=== PATIENT | female | born 1930 | race Caucasian/White ===

== ENCOUNTER → 2016-04-06 | Outpatient (CLI) | payer MEDICARE, MEDICAID ==
[~2016-04-06] MED LIST: /AMLO25TA PO; ALTA10CA OR; ARTISOL10 OU; ASPI1TAB PO; ASPI81TA45 OR; ATEN50TA2 OR; ATEN50TA2 PO; BACT2OIN2 TOP; CALCTAB22 OR; CALCTAB68 PO; CHLO125TA PO; COLA100C2 OR; CRES20TA PO; ELIQ5TAB PO; FIBE625T PO; OCCUVITE OR; PRIL20CA PO; RECL5INJ2 IV; RISP0.253 PO; VERA120T OR; VITA10002 PO; VITA100072 PO; VITA200016 PO; ZOCO40TA OR
--- NOTE | 2016-04-06 11:33 | REPMRS ---
Patient History The patient states she has not had a clinical breast exam in over a year. Patient is nulliparous. No known family history of cancer. Digital Woman Screen Mammo: April 06, 2016 - Exam #: [id number] Bilateral CC and MLO view(s) were taken. Technologist: Lacey Raymond, Technologist Prior study comparison: February 06, 2015, digital woman screen mammo performed at [facility]. February 06, 2014, digital woman screen mammo performed at [facility]. FINDINGS: There are scattered fibroglandular densities. There is a fairly symmetric fibroglandular pattern in both breasts. There has been no interval development of masses, areas of architectural distortion or clusters of microcalcifications typical of malignancy. Large coarse benign appearing calcifications are present. No significant changes when compared with prior studies. ASSESSMENT: BI-RADS/ACR category 2 mammogram. Benign finding(s). Recommendation Routine screening mammogram of both breasts in 1 year (for women over age 40). This mammogram was interpreted with the aid of an FDA-approved computer-aided dectection system. Electronically Signed By: Gilbert Earl MD 04/06/16 [id number]
--- NOTE | 2016-04-08 09:56 | DEXA ---
AP SPINE L1 - L4 1.107 -0.7 1.4 LT FEMUR TOTAL 0.776 -1.8 0.7 RT FEMUR TOTAL 0.803 -1.6 0.9 TOTAL BODY TOTAL OTHER DUAL FEMUR FRAX* ASSESSMENT Risk factors: None. 10 year probability of fracture Major osteoporotic fracture 14.6 % Hip fracture 4.7 % COMMENTS: Normal bone densitometry of the spine. There is low bone density of the hips. The increased density of the spine does represent a significant change. The increased density of the left hip does represent a significant change. The increased density of the right hip does represent a significant change. The density of the spine has increased 11.7% since the initial exam on 2003. The spine density has increased 2.4% since the most recent exam on 04/15/2014. The density of the left hip has decreased 1.3% since the initial exam on 2003. The density of the left hip has increased 2.6% since the most recent exam on . The density of the right hip has decreased 5.9% since the initial exam on 2003. The density of the right hip has increased 2.9% since the most recent exam on . FOLLOW-UP: Recommendation for the next bone density exam: 2 years. FLORA
== END ==
LOC: M WHC 09:32
PROVIDERS: ATTEND Family Medicine
DX: Z12.31 Encounter for screening mammogram for malignant neoplasm of breast (principal); M81.0 Age-related osteoporosis without current pathological fracture
CPT/HCPCS: 77080; G0202

== ENCOUNTER → 2016-06-28 | Outpatient (REF) | payer MEDICARE, MEDICAID ==
[2016-06-28 12:38] LABS: ALBUMIN 3.1 GM/DL (3.2-5.2); ALBUMIN/GLOBULIN RATIO 1.07 (1.00-1.93); ALKALINE PHOSPHATASE 81 U/L (45-117); ALT/SGPT 19 U/L (12-78); ANION GAP 6 MEQ/L (8-16); AST/SGOT 14 U/L (15-37); BILIRUBIN,TOTAL 0.3 MG/DL (0.2-1.0); BLOOD UREA NITROGEN 18 MG/DL (7-18); CALCIUM LEVEL 8.7 MG/DL (8.8-10.2); CARBON DIOXIDE LEVEL 30 MEQ/L (21-32); CHLORIDE LEVEL 106 MEQ/L (98-107); CHOLESTEROL LEVEL 150 MG/DL (<200); CREATININE FOR GFR 0.92 MG/DL (0.55-1.02); GLOMERULAR FILTRATION RATE > 60.0 (>32); GLUCOSE, FASTING 98 MG/DL (83-110); POTASSIUM SERUM 4.8 MEQ/L (3.5-5.1); SODIUM LEVEL 142 MEQ/L (136-145); TRIGLYCERIDES LEVEL 218 MG/DL (<150)
== END ==
LOC: M SFHCPLAZ 08:46
PROVIDERS: ATTEND Family Medicine
DX: E78.5 Hyperlipidemia, unspecified (principal)

== ENCOUNTER 2016-10-13 07:27 | Outpatient (CLI) | payer MEDICARE, MEDICAID ==
[~2016-10-13] VITALS: Ht 152.4 cm; Wt 61.4 kg
[~2016-10-13 07:27] MED LIST changes: +BACT2OIN10 TOP; -BACT2OIN2 TOP
[2016-10-13] MEDS ORDERED: ZOLEDRONIC ACID 5 MG in APPROPRIATE DILUENT 1 EA IV ONE (07:45)
== END 2016-10-13 08:30 | disposition home or self-care (01) ==
LOC: M INFU 07:27
PROVIDERS: ATTEND Family Medicine
DX: M81.0 Age-related osteoporosis without current pathological fracture (principal); Z78.0 Asymptomatic menopausal state; Z79.82 Long term (current) use of aspirin; Z79.899 Other long term (current) drug therapy
CPT/HCPCS: 96365; J3489

== ENCOUNTER → 2016-10-19 | Outpatient (CLI) | payer MEDICARE, MEDICAID ==
[2016-10-19 18:47] LABS: BASO % 0.3 % (0.0-1.0); EOS # 0.2 K/mm3 (0.0-0.50); EOS % 3.2 % (0.0-3.0); LARGE UNSTAINED CELL # 0.2 K/mm3 (0.0-0.4); LARGE UNSTAINED CELL % 2.8 % (0.0-4.0); LYMPH # 1.8 K/mm3 (1.5-4.5); LYMPH % 22.3 % (24.0-44.0); MEAN CORPUSCULAR HEMOGLOBIN 31.4 pg (27.0-33.0); MEAN CORPUSCULAR HGB CONC 33.5 g/dl (32.0-36.5); MEAN CORPUSCULAR VOLUME 93.6 fl (80.0-96.0); MONO # 0.7 K/mm3 (0.0-0.8); MONO % 9.6 % (0.0-5.0); NEUTROPHILS # 4.5 K/mm3 (1.8-7.7); NEUTROPHILS % 61.8 % (36.0-66.0); PLATELET COUNT, AUTOMATED 236 k/mm3 (150-450); RED CELL DISTRIBUTION WIDTH 12.7 % (11.5-14.5); WHITE BLOOD COUNT 7.2 K/mm3 (4.0-10.0)
[2016-10-19 19:27] LABS: ANION GAP 5 MEQ/L (8-16); BLOOD UREA NITROGEN 27 MG/DL (7-18); CALCIUM LEVEL 9.2 MG/DL (8.8-10.2); CARBON DIOXIDE LEVEL 26 MEQ/L (21-32); CHLORIDE LEVEL 109 MEQ/L (98-107); CREATININE FOR GFR 1.22 MG/DL (0.55-1.02); GLOMERULAR FILTRATION RATE 44.4 (>32); GLUCOSE, FASTING 98 MG/DL (83-110); POTASSIUM SERUM 4.6 MEQ/L (3.5-5.1); SODIUM LEVEL 140 MEQ/L (136-145)
[2016-10-19 20:12] LABS: ERYTHROCYTE SEDIMENTATION RATE 29 mm/hr (0-42)
== END ==
LOC: M LAB 17:26
PROVIDERS: ATTEND Physician Assistant Medical
DX: M79.606 Pain in leg, unspecified (principal); F45.8 Other somatoform disorders; R63.0 Anorexia; Z86.711 Personal history of pulmonary embolism
CPT/HCPCS: 36415; 80048; 85025; 85379; 85652; 86140; G0463

== ENCOUNTER → 2016-12-16 | Outpatient (CLI) | payer MEDICARE, MEDICAID ==
[~2016-12-16] MED LIST changes: +E-Z-GAS II EFFERVESCENT PACKET (SODIUM BICARB./CITRIC ACID/SIMETHICONE) As Ordered ONE; +E-Z-HD 98% w/w 340GM SUSP BTL As Ordered ONE; +E-Z-PAQUE 96% w/w SUSP 176GM BTL As Ordered ONE; +VARIBAR NECTAR 40% w/v 240ML SUSP BTL As Ordered ONE; +VARIBAR PUDDING 40% w/v 230ML TUBE As Ordered ONE
--- NOTE | 2016-12-16 12:59 | REP ---
Modified barium swallow: CINE lateral swallowing fluoroscopy History: Dysphagia. 1 minute and 19 seconds of fluoroscopy time was utilized. Findings: Lateral video fluoroscopy is performed in conjunction with the swallowing therapist. The patient was given varying textures of barium labeled material to swallow. One episode of laryngeal reflux was observed with nectar consistency liquid. No other swallowing dysfunction was observed. Lateral views demonstrate advanced degenerative disc disease with large discogenic spurring in the mid cervical spine. This indents the posterior wall of the hypopharynx and upper cervical esophagus. It is most pronounced at C4-5 and C5-6. Signed by Eb Abernathy MD 12/16/2016 02:48 P
== END ==
LOC: M RAD 08:49
PROVIDERS: ATTEND Family Medicine
DX: J39.8 Other specified diseases of upper respiratory tract (principal); M50.320 Other cervical disc degeneration, mid-cervical region, unspecified level; M25.78 Osteophyte, vertebrae
CPT/HCPCS: 74230; 92611; G8996; G8997; G8998

== ENCOUNTER → 2016-12-20 | Outpatient (CLI) | payer MEDICARE, MEDICAID ==
[~2016-12-20] MED LIST changes: -E-Z-GAS II EFFERVESCENT PACKET (SODIUM BICARB./CITRIC ACID/SIMETHICONE) As Ordered ONE; -E-Z-HD 98% w/w 340GM SUSP BTL As Ordered ONE; -E-Z-PAQUE 96% w/w SUSP 176GM BTL As Ordered ONE; -VARIBAR NECTAR 40% w/v 240ML SUSP BTL As Ordered ONE; -VARIBAR PUDDING 40% w/v 230ML TUBE As Ordered ONE
--- NOTE | 2016-12-20 14:52 | REP ---
PA and lateral chest: Comparison is 2015. The right costophrenic angle is effaced suggestive of a small right pleural effusion. There are no infiltrates. Cardiac size is normal. The polly and mediastinum are unremarkable. There is diffuse demineralization and mild thoracic scoliosis convex left. Impression: Findings are compatible with a small right pleural effusion. Otherwise, essentially negative PA and lateral chest. No Signed by Gilbert Herrmann MD 12/20/2016 02:44 P
== END ==
LOC: M WUC 13:58
PROVIDERS: ATTEND Physician Assistant Medical
DX: R07.81 Pleurodynia (principal)
CPT/HCPCS: 71020; G0463

== ENCOUNTER → 2017-01-20 | Outpatient (REF) | payer MEDICARE, MEDICAID ==
[2017-01-20 11:43] LABS: BASO # 0.1 10^3/uL (0.0-0.2); BASO % 0.6 % (0.0-1.0); EOS # 0.2 10^3/uL (0.0-0.50); EOS % 2.9 % (0.0-3.0); IMMATURE GRANULOCYTE % 0.4 % (0-0); LYMPH # 1.8 10^3/uL (1.5-4.5); MEAN CORPUSCULAR HEMOGLOBIN 30.5 pg (27.0-33.0); MEAN CORPUSCULAR HGB CONC 31.5 g/dl (32.0-36.5); MEAN CORPUSCULAR VOLUME 96.8 fl (80.0-96.0); MONO # 0.9 10^3/uL (0.0-0.8); MONO % 11.5 % (0.0-5.0); NEUTROPHILS # 4.8 10^3/uL (1.8-7.7); NEUTROPHILS % 61.6 % (36.0-66.0); PLATELET COUNT, AUTOMATED 222 10^3/uL (150-450); RED CELL DISTRIBUTION WIDTH 13.2 % (11.5-14.5); WHITE BLOOD COUNT 7.8 10^3/uL (4.0-10.0)
[2017-01-20 12:58] LABS: ALBUMIN 3.2 GM/DL (3.2-5.2); ALBUMIN/GLOBULIN RATIO 0.91 (1.00-1.93); BILIRUBIN,TOTAL 0.5 MG/DL (0.2-1.0); CALCIUM LEVEL 9.2 MG/DL (8.8-10.2); CREATININE FOR GFR 0.97 MG/DL (0.55-1.02); GLOMERULAR FILTRATION RATE 57.8 (>32); PERCENT SATURATION 25.4 % (13.2-45.0); POTASSIUM SERUM 4.9 MEQ/L (3.5-5.1); TOTAL PROTEIN 6.7 GM/DL (6.4-8.2)
== END ==
LOC: M SFHCPLAZ 09:11
PROVIDERS: ATTEND Family Medicine
DX: N18.3 Chronic kidney disease, stage 3 (moderate) (principal)

== ENCOUNTER 2017-02-23 13:17 | Inpatient (IN) | payer MEDICARE, MEDICAID ==
[~2017-02-23] VITALS: Ht 142.2 cm; Wt 60.3 kg
[2017-02-23] MEDS ORDERED: ASPI81TA85 PO (13:29)
[2017-02-23] MEDS ORDERED: OMEP10CASR PO (13:29)
[2017-02-23] MEDS ORDERED: ALTA1CAP3 PO (13:29)
[2017-02-23] MEDS ORDERED: CALCTAB6 PO (13:29)
[2017-02-23] MEDS ORDERED: NS 1,000 ML IV SCH (13:51)
[2017-02-23] MEDS ORDERED: ACETAMINOPHEN TAB 650MG DOSE (2X325MG) PO ONE (14:00)
[2017-02-23 14:21] LABS: BASO % 0.1 % (0.0-1.0); EOS % 0.1 % (0.0-3.0); IMMATURE GRANULOCYTE % 0.4 % (0-0); LYMPH # 1.1 10^3/uL (1.5-4.5); LYMPH % 6.6 % (24.0-44.0); MEAN CORPUSCULAR HEMOGLOBIN 30.8 pg (27.0-33.0); MEAN CORPUSCULAR HGB CONC 32.6 g/dl (32.0-36.5); MEAN CORPUSCULAR VOLUME 94.7 fl (80.0-96.0); MONO # 1.1 10^3/uL (0.0-0.8); MONO % 7.1 % (0.0-5.0); NEUTROPHILS # 13.7 10^3/uL (1.8-7.7); NEUTROPHILS % 85.7 % (36.0-66.0); PLATELET COUNT, AUTOMATED 207 10^3/uL (150-450); RED CELL DISTRIBUTION WIDTH 13.2 % (11.5-14.5)
[2017-02-23 14:37] LABS: ALBUMIN 2.8 GM/DL (3.2-5.2); ALBUMIN/GLOBULIN RATIO 0.68 (1.00-1.93); BILIRUBIN,DIRECT 0.2 MG/DL (0.0-0.2); BILIRUBIN,TOTAL 0.5 MG/DL (0.2-1.0); CALCIUM LEVEL 8.9 MG/DL (8.8-10.2); CREATININE FOR GFR 1.16 MG/DL (0.55-1.02); POTASSIUM SERUM 4.4 MEQ/L (3.5-5.1); TOTAL PROTEIN 6.9 GM/DL (6.4-8.2)
[2017-02-23] MEDS ORDERED: ISOVUE-370 76% 100ML VIAL (Q9967) As Ordered ONE (14:40)
[2017-02-23 14:48] LABS: INR 0.97
--- NOTE | 2017-02-23 15:38 | REP ---
Clinical: Right lower quadrant pain. Technique: Axial contrast enhanced images from the lung bases to the pubic symphysis using 100 ml Isovue 370 intravenous contrast material with coronal and sagittal re-formations. Comparison: 11/13/2015. Findings: Liver, spleen, pancreas, gallbladder, and bilateral adrenal glands are normal. Atrophic left kidney and 3.8 cm right renal cyst remain stable. Moderate fluid-filled appearance to small bowel loops with collapsed loops noted in the lower abdomen/pelvis raising the possibility of early/partial small bowel obstruction. Right lower quadrant including terminal ileum, cecum and appendix are normal. Pelvis demonstrates stable appearance to the bladder with multiple bladder diverticula measuring up to approximately 2.9 cm diameter and age-appropriate uterus/adnexa. No pelvic fluid or ascites. No free air. No significant adenopathy. Atherosclerotic changes to the aorta and vasculature noted without aneurysm. Skeletal structures demonstrate age-related degenerative changes. Lung bases demonstrate bibasilar atelectasis. Impression: 1. Mildly distended loops of small bowel with collapsed loops noted in the lower abdomen/pelvis suggesting the possibility of early/partial small bowel obstruction. Right lower quadrant including cecum, terminal ileum and appendix are normal. 2. Chronic stable changes as described above. 3. Bibasilar atelectasis. Signed by Adam Barth MD 02/23/2017 03:29 P
[2017-02-23] MEDS ORDERED: CEFTRIAXONE SOD 1 GM in APPROPRIATE DILUENT 1 EA IV ONE (16:30)
[2017-02-23] MEDS ORDERED: TYLE650T35 PO (17:00)
[2017-02-23] MEDS ORDERED: CLOB05OI TOP (17:00)
[2017-02-23] MEDS ORDERED: FIBE625T PO (17:00)
[2017-02-23] MEDS ORDERED: FLON1SPR (17:05)
[2017-02-23] MEDS ORDERED: OCUVTAB PO (17:05)
[2017-02-23] MEDS ORDERED: SALI0.6523 (17:05)
[2017-02-23] MEDS ORDERED: OMEP20CA3 PO (17:05)
[2017-02-23] MEDS ORDERED: ACETAMINOPHEN TAB 650MG DOSE (2X325MG) PO PRN (18:00)
--- NOTE | 2017-02-23 18:00 | HPEPDOC ---
General Date of Admission 02/23/2017 Primary Care Physician: Silvestre Myles M.D. Chief Complaint The patient is a 86-year-old female admitted with a reason for visit of Leg Pain. Source: [facility] Caregiver/Aid Exam Limitations: Dementia, Hard of hearing, Mild cognitive slowing, Other ( intellectual disability) Timing/Duration: Day(s) (past day) Severity: Moderate History of Present Illness Ms. Nguyen is 86-year-old female with past medical history significant for intellectual disability, osteoarthritis, dyslipidemia, hypertension, diverticulosis, neurofibromatosis, dementia, diastolic heart failure, history of positive PPD, macular degeneration, CKD, impaired fasting glucose, GERD, factor V Leiden deficiency, chronic kidney disease and history of PE and DVT who is a resident at [facility], patient presents today for increasing left-sided flank pain for the past 1-2 days. The patient is close to her baseline level of cognition according to the [facility] caregiver who is at bedside, the patient has an intellectual disability and cannot answer most questions for herself, her speech is also garbled which again is normal for her. Apparently she has been complaining of increasing left-sided back pain, however she has not complained of any pain with urination blood in her urine or increased frequency, there was a reported temperature today of 100, otherwise no nausea vomiting diarrhea has been reported. The patient usually has a decreased appetite and apparently it is very hard to get her to eat especially at night, she is on a soft diet with 1 cm chunks, nectar thickened. She has not had any recent travel nor any recent contacts with sick individuals. According to the [facility] caregiver the patient no longer takes Eliquis. Her last bowel movement was apparently solid and was 2 days ago. The patient's sister and [facility] apparently share healthcare power of senior trial attorney, the sister's name is Charlotte Carver [phone]. The [facility] caregiver was going to ensure by calling the facility, as he was not certain of her CODE STATUS. The [facility] caregiver did state he thinks she seems a little bit more lethargic than normal but still is close to her baseline. She usually ambulates with a walker, [facility] landcare facilitator also stated that if she does not eat at night that it is not abnormal and she may have a protein drink. Home Medications Scheduled (Flonase Allergy Relief) 50 Mcg/Act Spr, 1 SPRAY NA DAILY, (Reported) Aspirin (Aspir-81) 81 Mg Tab, 81 MG PO QHS, (Reported) Atenolol (Atenolol) 50 Mg Tab, 50 MG PO DAILY, (Reported) Calcium Polycarbophil (Fibercon) 625 Mg Tab, 625 MG PO ASDIRECTED, (Reported) USE ON DAY 3 OF NO BM Calcium/Vitamin D (Calcium 600-D 600-400 mg-Unit) 1 Tab Tab, 1 TAB PO BID, ( Reported) Cyanocobalamin (Vitamin B12) 1,000 Mcg Tab, 1,000 MCG PO DAILY, (Reported) Multivitamins (Ocuvite) 1 Tab Tab, 1 TAB PO DAILY, (Reported) Omeprazole (Omeprazole) 20 Mg Cap, 40 MG PO DAILY, (Reported) Ramipril (Altace) 5 Mg Cap, 5 MG PO BID, (Reported) Risperidone (Risperidone) 0.25 Mg Tab, 0.25 MG PO BID, (Reported) Rosuvastatin Calcium (Crestor) 20 Mg Tab, 20 MG PO QHS, (Reported) Vitamin D (Vitamin D) 2,000 Unit Cap, 2,000 UNIT PO DAILY, (Reported) Scheduled PRN (Saline Nasal [place]) 0.65 % Spr, 2 SPRAYS NA Q2H PRN for CONGESTION, (Reported) Acetaminophen (Tylenol 8 Hour Arthritis) 650 Mg Tab, 1,300 MG PO Q8H PRN for PAIN, (Reported) Clobetasol Propionate (Clobetasol Propionate) 0.05 % Oin, 1 DOSE TOP DAILY PRN for ITCHING, (Reported) APPLY TO FLARED SKIN Mupirocin (Pseudomonas Fluores (Bactroban) 2 % Oin, 1 DOSE TOP TID PRN for OPEN WOUNDS (PATIENT CAUSED), (Reported) Allergies Coded Allergies: No Known Drug Allergy (Verified Allergy, Unknown, 07/02/12) Past Medical History Medical History as per HPI Surgical History Colonoscopy EGD Bilateral cataract Family History Significant Family History: No pertinent family hx Social History * Smoker: Denies Alcohol: Denies Drugs: denies Psychosocial History: Dementia, Other (baseline intellectual disability) Review of Symptoms Constitutional: Reports: Fever, Lethargy, Denies: Chills, Malaise, Night Sweats, Weakness, Fatigue Pulmonary: Denies: Dyspnea, Cough, Pleuritic Chest Pain Cardiovascular: Denies: Chest Pain Gastrointestinal: Denies: Nausea, Vomiting, Abdominal Pain, Diarrhea, Constipation, Melena Genitourinary: Denies: Dysuria, Frequency, Incontinence, Hematuria Musculoskeletal: Reports: Back Pain (left sided back pain) Neurological: Denies: Weakness, Numbness Physical Examination General Exam: Positive: Cooperative, No Acute Distress, Negative: Alert (fatigued, falling asleep on exam) Eye Exam: Positive: Conjunctiva & lids normal, EOMI, Negative: Sclera icteric, Ptosis ENT Exam: Positive: Atraumatic, Nares Patent, Negative: Mucous membr. moist/pink (dry) Neck Exam: Positive: Supple Chest Exam: Positive: Clear to auscultation, Normal air movement, Negative: Rales, Rhonchi, Wheezing, Diminished Heart Exam: Positive: Rate Normal, Normal S1, Normal S2, Negative: Tachycardic, Bradycardic Telemetry: Positive: No significant arrhythmia Abdomen Exam: Positive: Soft, Negative: Normal bowel sounds (hypo throughout), Tenderness, Hepatospenomegaly Extremity Exam: Positive: Edema (+1 b/l LE, this is normal for her as per [facility] caregiver), Swelling, Other (pain with zambrano punch on left flank), Negative: Clubbing, Cyanosis, Tenderness Skin Exam: Positive: Other skin issue (nerurofibromas on face and body) Psych Exam: Negative: Mental status NL (intellectual disability), Oriented x 3 Vital Signs Vital Signs Date Time Temp Pulse Resp B/P (MAP) Pulse Ox O2 Delivery O2 Flow Rate FiO2 02/23/17 16:30 84 182/73 (109) 95 02/23/17 13:17 100.4 18 Room Air Laboratory Data Labs 24H Laboratory Tests 2 02/23/17 14:08: Immature Granulocyte % (Auto) 0.4H, White Blood Count 16.0H, Red Blood Count 4.51, Hemoglobin 13.9, Hematocrit 42.7, Mean Corpuscular Volume 94.7, Mean Corpuscular Hemoglobin 30.8, Mean Corpuscular Hemoglobin Concent 32.6, Red Cell Distribution Width 13.2, Platelet Count 207, Neutrophils (%) (Auto) 85.7H, Lymphocytes (%) (Auto) 6.6L, Monocytes (%) (Auto) 7.1H, Eosinophils (%) (Auto) 0.1, Basophils (%) (Auto) 0.1, Neutrophils # (Auto) 13.7H, Lymphocytes # (Auto) 1.1L, Monocytes # (Auto) 1.1H, Eosinophils # (Auto) 0.0, Basophils # (Auto) 0.0 , Immature Granulocyte # (Auto) 0.1H, Nucleated Red Blood Cells % (auto) 0.0, Prothrombin Time 13.0, Prothromb Time International Ratio 0.97, Anion Gap 8, Glomerular Filtration Rate 47.0, Lactic Acid Level 2.6*H, Calcium Level 8.9, Aspartate Amino Transf (AST/SGOT) 14, Alanine Aminotransferase (ALT/SGPT) 18, Alkaline Phosphatase 77, Total Bilirubin 0.5, Direct Bilirubin 0.2, Total Protein 6.9, Albumin 2.8L, Albumin/Globulin Ratio 0.68L, Lipase 50L 02/23/17 15:51: Urine Appearance CLOUDYH, Urine Color YELLOW, Urine pH 8.0, Urine Specific [place] 1.044, Urine Protein 1+H, Urine Glucose (UA) NEGATIVE, Urine Ketones NEGATIVE, Urine Urobilinogen 2.0H, Urine Bilirubin NEGATIVE, Urine Leukocyte Esterase 2+H, Urine Blood NEGATIVE, Urine Nitrite POSITIVE, Urine WBC (Auto) 64H , Urine RBC (Auto) 3, Urine Hyaline Casts (Auto) 0, Urine Bacteria (Auto) 3+H, Urine Squamous Epithelial Cells 5, Urine Mucus (Auto) SMALL, Urine Sperm (Auto) CBC/BMP Laboratory Tests 02/23/17 14:08 Red Blood Count 4.51, Mean Corpuscular Volume 94.7, Mean Corpuscular Hemoglobin 30.8, Mean Corpuscular Hemoglobin Concent 32.6, Red Cell Distribution Width 13.2 , Neutrophils (%) (Auto) 85.7 H, Lymphocytes (%) (Auto) 6.6 L, Monocytes (%) ( Auto) 7.1 H, Eosinophils (%) (Auto) 0.1, Basophils (%) (Auto) 0.1, Neutrophils # (Auto) 13.7 H, Lymphocytes # (Auto) 1.1 L, Monocytes # (Auto) 1.1 H, Eosinophils # (Auto) 0.0, Basophils # (Auto) 0.0 Microbiology Microbiology 02/23/17 Blood Culture, Received Pending 02/23/17 Blood Culture, Received Pending 02/23/17 Urine Culture, Received Pending Assessment/Plan This is an 86-year-old [facility] female brought to the emergency department for complaint of left-sided flank pain. 1. Left-sided flank pain - Urinalysis done in the ED is suggestive of urinary tract infection -White blood cell count elevated to 16 with lactic acid 2.6 -Patient did receive 1 g of ceftriaxone in ED, will continue 1 g daily and patient, history of past urine culture consistent with Escherichia coli -Patient does not have nausea or vomiting, she is on FiberCon, will continue senna-S and MiraLAX, she does have a history of constipation -CT abdomen and pelvis showed mildly distended loops of small bowel with collapsed loops noted in the lower abdomen/pelvis suggesting the possibility of early/partial small bowel obstruction. Right lower quadrant including cecum, terminal ileum and appendix are normal. Chronic stable changes as described above with bibasilar atelectasis. -Since patient does not have nausea or vomiting at this point time, we'll continue with bowel medications. -Blood and urine culture pending, gentle fluid hydration in light of history of heart failure and advanced age -Pain control with tylenol 2. Hypertension -Stable 165/77 -Continue at home atenolol and Ramipril 3. History of diastolic heart failure -Patient seems euvolemic at the moment -Some trace bilateral lower extremity edema, per [facility] caregiver this is normal -Patient is not short of breath -Last echocardiogram done in 2014 showed left ventricular ejection fraction 75% with pulmonary arterial hypertension or right heart failure -Patient is not on any home diuretic therapy 4. Dyslipidemia -Continue home aspirin and Crestor 5. History of constipation Begin senna S and MiraLAX 6. History of neurotic excoriations -Apparently patient will sometimes itch her skin and cause source, patient may continue her mupirocin ointment for this. 7. GERD Continue omeprazole 8. Intellectual disability Patient is on risperidone, will continue this 9. DVT and PE history -We will begin heparin TID inpatient 10. History of impaired fasting glucose -Glucose 133 in ED -Patient can have sliding scale insulin according to fingers stick glucose 11. Dementia Stable Plan / VTE VTE Prophylaxis Ordered?: Yes GME ATTESTATION GME ATTESTATION My faculty preceptor for this patient encounter was physically present during the encounter and was fully available. All aspects of the patient interview, examination, medical decision making process, and medical care plan development were reviewed and approved by the faculty preceptor. The faculty preceptor is aware and concurs with the plan as stated in the body of this note and will attest to such by his/her cosignature. ATTENDING NOTE I have both independently examined this patient as well as reviewed the H&P. I have discussed in detail with the resident the findings and plan of treatment as documented in the residents note. I will continue to follow the patient and offer further guidance to the patients care as necessary during this hospital stay. BABAR Cagle MD, DO Feb 23, 2017 18:00 CLAUDETTE KWOK MD Feb 24, 2017 11:41
[2017-02-23] MEDS: NS 1,000 ML IV SCH (18:07)
[2017-02-23] MEDS ORDERED: MUPIROCIN 2% OINT 22 GM TUBE TOP PRN (18:15)
[2017-02-23] MEDS ORDERED: SODIUM CHLORIDE NASAL 0.65% SPRAY BTL (OCEAN) PRN (18:15)
[2017-02-23] MEDS ORDERED: CLOBETASOL PROP 0.05% OINT 30 GM TOP PRN (18:15)
[2017-02-23] MEDS: HEPARIN SOD (PORCINE) 5000 UNITS/ML VIAL SC SCH (21:21)
[2017-02-23] MEDS: ROSUVASTATIN 10 MG TAB (CRESTOR) PO SCH (21:21)
[2017-02-23] MEDS: risperiDONE 0.25 MG TAB PO SCH (21:21)
[2017-02-23] MEDS: ASPIRIN 81 MG ENTERIC TAB PO SCH (21:21)
[2017-02-23] MEDS: RAMIPRIL 5 MG CAP PO SCH (21:22)
[2017-02-24] MEDS: HEPARIN SOD (PORCINE) 5000 UNITS/ML VIAL SC SCH ×3 (05:43→20:50)
[2017-02-24 06:00] VITALS: BP 158/60
--- NOTE | 2017-02-24 06:12 | ECGEPIP ---
Stationary ECG Study [facility] - ED Test Date: 2017-02-23 Pat Name: HAI CUTLER Department: Room: - Gender: F Rn Plastic Surgery: GIDEON : 1930 Requested By: Michelle Plaza Order Number: [id number] Reading MD: Puma Hoffman Measurements Intervals [place] Rate: 77 P: 65 CA: 170 QRS: 0 QRSD: 83 T: 3 QT: 353 QTc: 399 Interpretive Statements SINUS RHYTHM WITH OCCASIONAL SUPRAVENTRICULAR PREMATURE COMPLEXES MODERATE VOLTAGE CRITERIA FOR LVH, CONSIDER NORMAL VARIANT NONSPECIFIC T-WAVE ABNORMALITY SIMILAR TO 10/31/15 Electronically Signed On 02-24-2017 6:12:04 EST by Puma Hoffman
[2017-02-24 06:31] LABS: BASO % 0.2 % (0.0-1.0); EOS # 0.1 10^3/uL (0.0-0.50); EOS % 0.6 % (0.0-3.0); IMMATURE GRANULOCYTE % 0.4 % (0-0); LYMPH # 1.3 10^3/uL (1.5-4.5); LYMPH % 12.6 % (24.0-44.0); MEAN CORPUSCULAR HEMOGLOBIN 30.7 pg (27.0-33.0); MEAN CORPUSCULAR HGB CONC 32.8 g/dl (32.0-36.5); MEAN CORPUSCULAR VOLUME 93.4 fl (80.0-96.0); MONO # 1.1 10^3/uL (0.0-0.8); MONO % 10.4 % (0.0-5.0); NEUTROPHILS % 75.8 % (36.0-66.0); PLATELET COUNT, AUTOMATED 203 10^3/uL (150-450); RED CELL DISTRIBUTION WIDTH 13.2 % (11.5-14.5); WHITE BLOOD COUNT 10.5 10^3/uL (4.0-10.0)
[2017-02-24 06:48] LABS: ANION GAP 8 MEQ/L (8-16); BLOOD UREA NITROGEN 17 MG/DL (7-18); CALCIUM LEVEL 8.7 MG/DL (8.8-10.2); CARBON DIOXIDE LEVEL 23 MEQ/L (21-32); CHLORIDE LEVEL 112 MEQ/L (98-107); CREATININE FOR GFR 0.89 MG/DL (0.55-1.02); GLOMERULAR FILTRATION RATE > 60.0 (>32); GLUCOSE, FASTING 103 MG/DL (83-110); POTASSIUM SERUM 3.8 MEQ/L (3.5-5.1); SODIUM LEVEL 143 MEQ/L (136-145)
[2017-02-24] MEDS: MIRALAX *UNIT DOSE* 17GM PACKET PO SCH (09:56)
[2017-02-24] MEDS: FLUTICASONE PROP 0.05% NASAL SPRAY 16 GM (FLONASE) SCH (09:58)
[2017-02-24] MEDS: VITAMIN D 1,000 INTERNATIONAL UNITS TABLET PO SCH (09:58)
[2017-02-24] MEDS: OMEPRAZOLE 20 MG CAP PO SCH (09:58)
[2017-02-24] MEDS: risperiDONE 0.25 MG TAB PO SCH ×2 (09:58→20:01)
[2017-02-24] MEDS: OCUVITE 1 TAB PO SCH (09:58)
[2017-02-24] MEDS: SENOKOT S TAB PO SCH (09:58)
[2017-02-24] MEDS: CYANOCOBALAMIN 500 MCG TAB PO SCH (09:58)
[2017-02-24] MEDS: NS 1,000 ML IV SCH (10:03)
[2017-02-24] MEDS: ATENOLOL 50 MG TAB PO SCH (10:03)
[2017-02-24] MEDS: RAMIPRIL 5 MG CAP PO SCH ×2 (10:03→20:02)
--- NOTE | 2017-02-24 13:42 | IPNPDOC ---
Subjective Date Seen The patient was seen on 02/24/17. Subjective Chief Complaint/HPI The patient is a 86-year-old female admitted with a reason for visit of Pyelonephritis. Events since last encounter I spoke with patient's nurse this morning. Nurse states that patient has been doing fine, not having any fevers, not complaining of any pain. Nurse did not have any concerns today. General: Reports: ROS Unobtainable Objective Physical Examination General Exam: Positive: Cooperative, No Acute Distress Chest Exam: Positive: Clear to auscultation, Normal air movement, Negative: Rales, Rhonchi, Wheezing Heart Exam: Positive: Rate Normal, Regular Rhythm, Normal S1, Normal S2, Negative: Tachycardic, Bradycardic, Gallops, Murmurs, Rubs Abdomen Exam: Positive: Normal bowel sounds, Soft, Negative: Tenderness, Hepatospenomegaly Extremity Exam: Negative: Edema Skin Exam: Positive: Other skin issue (nerurofibromas on face and body) Psych Exam: Positive: Mental status NL (intellectual disability) Assessment /Plan Problems (1) Pyelonephritis Status: Acute Problem Text: 02/24: Improving, white blood cell count down from 16 yesterday to 10.5 today. Ceftriaxone started on 02/23, continue current antibiotic dosing (2) Hypertension Problem Text: 02/24: Stable, continue to monitor (3) Diastolic heart failure Problem Text: 02/24: Last echocardiogram done in 2014 showed left ventricular ejection fraction 75% with pulmonary arterial hypertension or right heart failure (4) Dyslipidemia Problem Text: 02/24: Stable, continue aspirin and Crestor (5) Constipation Problem Text: 02/24: Stable, continue senna and MiraLAX (6) Neurotic excoriations Problem Text: 02/24: Stable, continue mupirocin (7) GERD (gastroesophageal reflux disease) Problem Text: 02/24: Stable, continue omeprazole (8) Intellectual disability Problem Text: 02/24: Continue risperidone Plan/VTE VTE Prophylaxis Ordered?: Yes Plan Patient was seen and examined by myself and her care was reviewed with the resident physician on service VS, I&O, 24H, Fishbone Vital Signs/I&O Vital Signs Date Time Temp Pulse Resp B/P (MAP) Pulse Ox O2 Delivery O2 Flow Rate FiO2 02/24/17 10:03 136/51 02/24/17 10:03 74 02/24/17 06:00 98.1 18 93 Room Air Laboratory Data 24H LABS Laboratory Tests 2 02/23/17 14:08: Immature Granulocyte % (Auto) 0.4H, White Blood Count 16.0H, Red Blood Count 4.51, Hemoglobin 13.9, Hematocrit 42.7, Mean Corpuscular Volume 94.7, Mean Corpuscular Hemoglobin 30.8, Mean Corpuscular Hemoglobin Concent 32.6, Red Cell Distribution Width 13.2, Platelet Count 207, Neutrophils (%) (Auto) 85.7H, Lymphocytes (%) (Auto) 6.6L, Monocytes (%) (Auto) 7.1H, Eosinophils (%) (Auto) 0.1, Basophils (%) (Auto) 0.1, Neutrophils # (Auto) 13.7H, Lymphocytes # (Auto) 1.1L, Monocytes # (Auto) 1.1H, Eosinophils # (Auto) 0.0, Basophils # (Auto) 0.0 , Immature Granulocyte # (Auto) 0.1H, Nucleated Red Blood Cells % (auto) 0.0, Prothrombin Time 13.0, Prothromb Time International Ratio 0.97, Anion Gap 8, Glomerular Filtration Rate 47.0, Lactic Acid Level 2.6*H, Calcium Level 8.9, Aspartate Amino Transf (AST/SGOT) 14, Alanine Aminotransferase (ALT/SGPT) 18, Alkaline Phosphatase 77, Total Bilirubin 0.5, Direct Bilirubin 0.2, Total Protein 6.9, Albumin 2.8L, Albumin/Globulin Ratio 0.68L, Lipase 50L 02/23/17 15:51: Urine Appearance CLOUDYH, Urine Color YELLOW, Urine pH 8.0, Urine Specific [place] 1.044, Urine Protein 1+H, Urine Glucose (UA) NEGATIVE, Urine Ketones NEGATIVE, Urine Urobilinogen 2.0H, Urine Bilirubin NEGATIVE, Urine Leukocyte Esterase 2+H, Urine Blood NEGATIVE, Urine Nitrite POSITIVE, Urine WBC (Auto) 64H , Urine RBC (Auto) 3, Urine Hyaline Casts (Auto) 0, Urine Bacteria (Auto) 3+H, Urine Squamous Epithelial Cells 5, Urine Mucus (Auto) SMALL, Urine Sperm (Auto) 02/23/17 18:27: Lactic Acid Followup at 4 Hours 1.2 02/24/17 06:15: Immature Granulocyte % (Auto) 0.4H, White Blood Count 10.5H, Red Blood Count 4.11, Hemoglobin 12.6, Hematocrit 38.4, Mean Corpuscular Volume 93.4, Mean Corpuscular Hemoglobin 30.7, Mean Corpuscular Hemoglobin Concent 32.8, Red Cell Distribution Width 13.2, Platelet Count 203, Neutrophils (%) (Auto) 75.8H, Lymphocytes (%) (Auto) 12.6L, Monocytes (%) (Auto) 10.4H, Eosinophils (%) (Auto ) 0.6, Basophils (%) (Auto) 0.2, Neutrophils # (Auto) 8.0H, Lymphocytes # (Auto ) 1.3L, Monocytes # (Auto) 1.1H, Eosinophils # (Auto) 0.1, Basophils # (Auto) 0.0, Immature Granulocyte # (Auto) 0.0, Nucleated Red Blood Cells % (auto) 0.0, Anion Gap 8, Glomerular Filtration Rate > 60.0, Calcium Level 8.7L, Blood Urea Nitrogen 17, Creatinine 0.89, Sodium Level 143, Potassium Level 3.8, Chloride Level 112H, Carbon Dioxide Level 23 CBC/BMP Laboratory Tests 02/23/17 14:08 Red Blood Count 4.51, Mean Corpuscular Volume 94.7, Mean Corpuscular Hemoglobin 30.8, Mean Corpuscular Hemoglobin Concent 32.6, Red Cell Distribution Width 13.2 , Neutrophils (%) (Auto) 85.7 H, Lymphocytes (%) (Auto) 6.6 L, Monocytes (%) ( Auto) 7.1 H, Eosinophils (%) (Auto) 0.1, Basophils (%) (Auto) 0.1, Neutrophils # (Auto) 13.7 H, Lymphocytes # (Auto) 1.1 L, Monocytes # (Auto) 1.1 H, Eosinophils # (Auto) 0.0, Basophils # (Auto) 0.0 02/24/17 06:15 Red Blood Count 4.11, Mean Corpuscular Volume 93.4, Mean Corpuscular Hemoglobin 30.7, Mean Corpuscular Hemoglobin Concent 32.8, Red Cell Distribution Width 13.2 , Neutrophils (%) (Auto) 75.8 H, Lymphocytes (%) (Auto) 12.6 L, Monocytes (%) ( Auto) 10.4 H, Eosinophils (%) (Auto) 0.6, Basophils (%) (Auto) 0.2, Neutrophils # (Auto) 8.0 H, Lymphocytes # (Auto) 1.3 L, Monocytes # (Auto) 1.1 H, Eosinophils # (Auto) 0.1, Basophils # (Auto) 0.0, Calcium Level 8.7 L Microbiology Microbiology 02/23/17 Blood Culture, Received Pending 02/23/17 Blood Culture, Received Pending 02/23/17 Urine Culture, Received Pending GME ATTESTATION GME ATTESTATION My faculty preceptor for this patient encounter was physically present during the encounter and was fully available. All aspects of the patient interview, examination, medical decision making process, and medical care plan development were reviewed and approved by the faculty preceptor. The faculty preceptor is aware and concurs with the plan as stated in the body of this note and will attest to such by his/her cosignature. ANDREW ESCOBAR DO Feb 24, 2017 13:42 Blaine White M.D. Feb 24, 2017 16:45
[2017-02-24] MEDS: CEFTRIAXONE SOD 1 GM in APPROPRIATE DILUENT 1 EA IV SCH (16:15)
[2017-02-24] MEDS: ASPIRIN 81 MG ENTERIC TAB PO SCH (20:01)
[2017-02-24] MEDS: ROSUVASTATIN 10 MG TAB (CRESTOR) PO SCH (20:01)
[2017-02-24 20:06] VITALS: BP 137/65
[2017-02-25] MEDS: NS 1,000 ML IV SCH ×2 (01:50→19:05)
[2017-02-25 05:47] LABS: BASO % 0.2 % (0.0-1.0); EOS # 0.1 10^3/uL (0.0-0.50); EOS % 1.3 % (0.0-3.0); IMMATURE GRANULOCYTE % 0.2 % (0-0); LYMPH # 1.3 10^3/uL (1.5-4.5); LYMPH % 14.3 % (24.0-44.0); MEAN CORPUSCULAR HEMOGLOBIN 30.7 pg (27.0-33.0); MEAN CORPUSCULAR HGB CONC 32.5 g/dl (32.0-36.5); MEAN CORPUSCULAR VOLUME 94.6 fl (80.0-96.0); MONO % 10.6 % (0.0-5.0); NEUTROPHILS # 6.8 10^3/uL (1.8-7.7); NEUTROPHILS % 73.4 % (36.0-66.0); PLATELET COUNT, AUTOMATED 212 10^3/uL (150-450); RED CELL DISTRIBUTION WIDTH 13.2 % (11.5-14.5); WHITE BLOOD COUNT 9.3 10^3/uL (4.0-10.0)
[2017-02-25] MEDS: HEPARIN SOD (PORCINE) 5000 UNITS/ML VIAL SC SCH ×3 (05:55→20:19)
[2017-02-25 06:00] VITALS: BP 141/64
[2017-02-25 06:06] LABS: ANION GAP 9 MEQ/L (8-16); BLOOD UREA NITROGEN 14 MG/DL (7-18); CALCIUM LEVEL 7.7 MG/DL (8.8-10.2); CARBON DIOXIDE LEVEL 21 MEQ/L (21-32); CHLORIDE LEVEL 115 MEQ/L (98-107); CREATININE FOR GFR 0.83 MG/DL (0.55-1.02); GLOMERULAR FILTRATION RATE > 60.0 (>32); GLUCOSE, FASTING 102 MG/DL (83-110); POTASSIUM SERUM 3.8 MEQ/L (3.5-5.1); SODIUM LEVEL 145 MEQ/L (136-145)
[2017-02-25] MEDS: OCUVITE 1 TAB PO SCH (08:18)
[2017-02-25] MEDS: risperiDONE 0.25 MG TAB PO SCH ×2 (08:18→20:19)
[2017-02-25] MEDS: CYANOCOBALAMIN 500 MCG TAB PO SCH (08:18)
[2017-02-25] MEDS: RAMIPRIL 5 MG CAP PO SCH ×2 (08:18→20:19)
[2017-02-25] MEDS: SENOKOT S TAB PO SCH (08:19)
[2017-02-25] MEDS: VITAMIN D 1,000 INTERNATIONAL UNITS TABLET PO SCH (08:19)
[2017-02-25] MEDS: OMEPRAZOLE 20 MG CAP PO SCH (08:19)
[2017-02-25] MEDS: MIRALAX *UNIT DOSE* 17GM PACKET PO SCH (08:19)
[2017-02-25] MEDS: FLUTICASONE PROP 0.05% NASAL SPRAY 16 GM (FLONASE) SCH (08:20)
[2017-02-25] MEDS: ATENOLOL 50 MG TAB PO SCH (08:20)
--- NOTE | 2017-02-25 13:39 | IPNPDOC ---
Subjective Date Seen The patient was seen on 02/25/17. Subjective Chief Complaint/HPI The patient is a 86-year-old female admitted with a reason for visit of Pyelonephritis. Constitutional: Denies: Chills, Fever Eyes: Denies: Pain, Vision change ENT: Denies: Head Aches Skin: Denies: Rash Pulmonary: Denies: Dyspnea, Cough Cardiovascular: Denies: Chest Pain Objective Physical Examination General Exam: Positive: Cooperative, No Acute Distress Chest Exam: Positive: Clear to auscultation, Normal air movement, Negative: Rales, Rhonchi, Wheezing Heart Exam: Positive: Rate Normal, Regular Rhythm, Normal S1, Normal S2, Negative: Tachycardic, Bradycardic, Gallops, Murmurs, Rubs Abdomen Exam: Positive: Normal bowel sounds, Soft, Negative: Tenderness, Hepatospenomegaly Extremity Exam: Negative: Edema Skin Exam: Positive: 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 coli >100K 02/23 BCX x 2 NG 02/23 CT AP: 1. Mildly distended loops of small bowel with collapsed loops noted in the lower abdomen/pelvis suggesting the possibility of early/partial small bowel obstruction. Right lower quadrant including cecum, terminal ileum and appendix are normal. 2. Chronic stable changes as described above. 3. Bibasilar atelectasis. (2) Incontinent of urine Status: Chronic Problem Text: chronic, near complete incontinence check bladder US to r/o retention (3) Physical deconditioning Status: Acute Response to Treatment: Stable Problem Text: [facility] resident 02/25 consult PT (4) Hypertension Problem Text: Stable on HD atenolol/ramipril (5) Diastolic heart failure Problem Text: Euvolemic on current regimen 02/24: Last echocardiogram done in 2014 showed left ventricular ejection fraction 75% with pulmonary arterial hypertension or right heart failure (6) Constipation Problem Text: 02/24: Stable, continue senna and MiraLAX (7) Neurotic excoriations Problem Text: 02/24: Stable, continue mupirocin (8) GERD (gastroesophageal reflux disease) Problem Text: 02/24: Stable, continue omeprazole (9) Intellectual disability Problem Text: 02/24: Continue risperidone Plan/VTE VTE Prophylaxis Ordered?: Yes VS, I&O, 24H, Fishbone Vital Signs/I&O Vital Signs Date Time Temp Pulse Resp B/P (MAP) Pulse Ox O2 Delivery O2 Flow Rate FiO2 02/25/17 08:20 72 150/62 02/25/17 06:00 98.6 18 93 Room Air Laboratory Data 24H LABS Laboratory Tests 2 02/25/17 05:09: Immature Granulocyte % (Auto) 0.2H, White Blood Count 9.3, Red Blood Count 3.87L , Hemoglobin 11.9L, Hematocrit 36.6, Mean Corpuscular Volume 94.6, Mean Corpuscular Hemoglobin 30.7, Mean Corpuscular Hemoglobin Concent 32.5, Red Cell Distribution Width 13.2, Platelet Count 212, Neutrophils (%) (Auto) 73.4H, Lymphocytes (%) (Auto) 14.3L, Monocytes (%) (Auto) 10.6H, Eosinophils (%) (Auto ) 1.3, Basophils (%) (Auto) 0.2, Neutrophils # (Auto) 6.8, Lymphocytes # (Auto) 1.3L, Monocytes # (Auto) 1.0H, Eosinophils # (Auto) 0.1, Basophils # (Auto) 0.0 , Immature Granulocyte # (Auto) 0.0, Nucleated Red Blood Cells % (auto) 0.0, Anion Gap 9, Glomerular Filtration Rate > 60.0, Blood Urea Nitrogen 14, Creatinine 0.83, Sodium Level 145, Potassium Level 3.8, Chloride Level 115H, Carbon Dioxide Level 21, Calcium Level 7.7L CBC/BMP Laboratory Tests 02/25/17 05:09 Red Blood Count 3.87 L, Mean Corpuscular Volume 94.6, Mean Corpuscular Hemoglobin 30.7, Mean Corpuscular Hemoglobin Concent 32.5, Red Cell Distribution Width 13.2, Neutrophils (%) (Auto) 73.4 H, Lymphocytes (%) (Auto) 14.3 L, Monocytes (%) (Auto) 10.6 H, Eosinophils (%) (Auto) 1.3, Basophils (%) ( Auto) 0.2, Neutrophils # (Auto) 6.8, Lymphocytes # (Auto) 1.3 L, Monocytes # ( Auto) 1.0 H, Eosinophils # (Auto) 0.1, Basophils # (Auto) 0.0, Calcium Level 7.7 L Microbiology Microbiology 02/23/17 Blood Culture - Preliminary, Resulted No growth after 24 hours . All specim... 02/23/17 Blood Culture - Preliminary, Resulted No growth after 24 hours . All specim... 02/23/17 Urine Culture - Final, Complete Escherichia Coli Silvestre Myles M.D. Feb 25, 2017 13:39
[2017-02-25 14:00] VITALS: BP 151/84
[2017-02-25] MEDS: CEFTRIAXONE SOD 1 GM in APPROPRIATE DILUENT 1 EA IV SCH (19:05)
[2017-02-25] MEDS: ROSUVASTATIN 10 MG TAB (CRESTOR) PO SCH (20:18)
[2017-02-25] MEDS: ASPIRIN 81 MG ENTERIC TAB PO SCH (20:19)
[2017-02-25 20:22] VITALS: BP 155/63
[2017-02-26] MEDS: HEPARIN SOD (PORCINE) 5000 UNITS/ML VIAL SC SCH ×3 (05:11→22:00)
[2017-02-26 06:00] VITALS: BP 165/72
[2017-02-26 06:47] LABS: BASO % 0.2 % (0.0-1.0); EOS # 0.2 10^3/uL (0.0-0.50); IMMATURE GRANULOCYTE % 0.5 % (0-0); LYMPH % 12.8 % (24.0-44.0); MEAN CORPUSCULAR HEMOGLOBIN 30.5 pg (27.0-33.0); MEAN CORPUSCULAR VOLUME 92.6 fl (80.0-96.0); MONO # 0.8 10^3/uL (0.0-0.8); MONO % 9.7 % (0.0-5.0); NEUTROPHILS % 74.8 % (36.0-66.0); PLATELET COUNT, AUTOMATED 233 10^3/uL (150-450); RED CELL DISTRIBUTION WIDTH 12.7 % (11.5-14.5); WHITE BLOOD COUNT 8.1 10^3/uL (4.0-10.0)
[2017-02-26 07:08] LABS: ANION GAP 9 MEQ/L (8-16); BLOOD UREA NITROGEN 10 MG/DL (7-18); CALCIUM LEVEL 8.1 MG/DL (8.8-10.2); CARBON DIOXIDE LEVEL 22 MEQ/L (21-32); CHLORIDE LEVEL 113 MEQ/L (98-107); CREATININE FOR GFR 0.69 MG/DL (0.55-1.02); GLOMERULAR FILTRATION RATE > 60.0 (>32); GLUCOSE, FASTING 92 MG/DL (83-110); POTASSIUM SERUM 3.3 MEQ/L (3.5-5.1); SODIUM LEVEL 144 MEQ/L (136-145)
[2017-02-26] MEDS: OMEPRAZOLE 20 MG CAP PO SCH (08:50)
[2017-02-26] MEDS: OCUVITE 1 TAB PO SCH (08:50)
[2017-02-26] MEDS: SENOKOT S TAB PO SCH (08:50)
[2017-02-26] MEDS: RAMIPRIL 5 MG CAP PO SCH ×2 (08:53→21:00)
[2017-02-26] MEDS: CYANOCOBALAMIN 500 MCG TAB PO SCH (08:54)
[2017-02-26] MEDS: risperiDONE 0.25 MG TAB PO SCH ×2 (08:54→21:00)
[2017-02-26] MEDS: FLUTICASONE PROP 0.05% NASAL SPRAY 16 GM (FLONASE) SCH (08:54)
[2017-02-26] MEDS: ATENOLOL 50 MG TAB PO SCH (08:54)
[2017-02-26] MEDS: VITAMIN D 1,000 INTERNATIONAL UNITS TABLET PO SCH (08:54)
--- NOTE | 2017-02-26 08:54 | IPNPDOC ---
Subjective Date Seen The patient was seen on 02/26/17. Subjective Chief Complaint/HPI The patient is a 86-year-old female admitted with a reason for visit of Pyelonephritis. Events since last encounter According to nursing staff, last night patient was extremely agitated and ripped out her IV. Constitutional: Denies: Chills, Fever ENT: Denies: Head Aches Pulmonary: Denies: Dyspnea, Cough Cardiovascular: Denies: Chest Pain, Palpitations Gastrointestinal: Denies: Nausea, Vomiting, Abdominal Pain, Diarrhea, Constipation Musculoskeletal: Denies: Back Pain Objective Physical Examination General Exam: Positive: Cooperative (Patient is minimally responsive to questioning, but cooperative with physical exam), No Acute Distress Chest Exam: Positive: Clear to auscultation, Normal air movement, Negative: Rales, Rhonchi, Wheezing Heart Exam: Positive: Rate Normal, Regular Rhythm, Normal S1, Normal S2, Negative: Tachycardic, Bradycardic, Gallops, Murmurs, Rubs Abdomen Exam: Positive: Normal bowel sounds, Soft, Other (No tenderness to palpation of CVA bilaterally), Negative: Tenderness, Hepatospenomegaly Extremity Exam: Positive: Tenderness (Patient has some minimal swelling of her lower extremities without pitting edema, she responds "Don't do that!" when I touched her legs), Swelling Skin Exam: Positive: 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 Urine Culture came back positive to E. coli with sensitivity to Bactrim. I have D/David her IV ABX in favor of oral Bactrim DS 160/800 BID. WBC 8.1 today. Bladder US done but not read yet. 02/25 Tm 02/24 99.5 200, WBC 9.3 (02/23 16.3) 02/23 UCX E. coli >100K 02/23 BCX x 2 NG 02/23 CT AP: 1. Mildly distended loops of small bowel with collapsed loops noted in the lower abdomen/pelvis suggesting the possibility of early/partial small bowel obstruction. Right lower quadrant including cecum, terminal ileum and appendix are normal. 2. Chronic stable changes as described above. 3. Bibasilar atelectasis. (2) Incontinent of urine Status: Chronic Problem Text: 02/26: Bladder U/S done, not read yet chronic, near complete incontinence check bladder US to r/o retention (3) Physical deconditioning Status: Acute Response to Treatment: Stable Problem Text: [facility] resident 02/26 Pt unable to assess BUT [facility] rep states patient is at baseline mobility 02/25 consulted PT (4) Hypertension Problem Text: Continue HD ramipril/atenolol changed to carvedilol for better control (5) Diastolic heart failure Problem Text: Euvolemic on current regimen 02/24: Last echocardiogram done in 2014 showed left ventricular ejection fraction 75% with pulmonary arterial hypertension or right heart failure (6) Constipation Problem Text: 02/24: Stable, continue senna and MiraLAX (7) Neurotic excoriations Problem Text: 02/24: Stable, continue mupirocin (8) GERD (gastroesophageal reflux disease) Problem Text: 02/24: Stable, continue omeprazole (9) Intellectual disability Problem Text: 02/24: Continue risperidone Plan/VTE VTE Prophylaxis Ordered?: Yes VS, I&O, 24H, Fishbone Vital Signs/I&O Vital Signs Date Time Temp Pulse Resp B/P (MAP) Pulse Ox O2 Delivery O2 Flow Rate FiO2 02/26/17 06:00 98.2 81 18 165/72 (103) 96 Room Air Laboratory Data 24H LABS Laboratory Tests 2 02/26/17 06:28: Anion Gap 9, Glomerular Filtration Rate > 60.0, Blood Urea Nitrogen 10, Creatinine 0.69, Sodium Level 144, Potassium Level 3.3L, Chloride Level 113H, Carbon Dioxide Level 22, Calcium Level 8.1L 02/26/17 06:29: Immature Granulocyte % (Auto) 0.5H, White Blood Count 8.1, Red Blood Count 3.93L , Hemoglobin 12.0, Hematocrit 36.4, Mean Corpuscular Volume 92.6, Mean Corpuscular Hemoglobin 30.5, Mean Corpuscular Hemoglobin Concent 33.0, Red Cell Distribution Width 12.7, Platelet Count 233, Neutrophils (%) (Auto) 74.8H, Lymphocytes (%) (Auto) 12.8L, Monocytes (%) (Auto) 9.7H, Eosinophils (%) (Auto) 2.0, Basophils (%) (Auto) 0.2, Neutrophils # (Auto) 6.0, Lymphocytes # (Auto) 1.0L, Monocytes # (Auto) 0.8, Eosinophils # (Auto) 0.2, Basophils # (Auto) 0.0, Immature Granulocyte # (Auto) 0.0, Nucleated Red Blood Cells % (auto) 0.0 CBC/BMP Laboratory Tests 02/26/17 06:28 Calcium Level 8.1 L 02/26/17 06:29 Red Blood Count 3.93 L, Mean Corpuscular Volume 92.6, Mean Corpuscular Hemoglobin 30.5, Mean Corpuscular Hemoglobin Concent 33.0, Red Cell Distribution Width 12.7, Neutrophils (%) (Auto) 74.8 H, Lymphocytes (%) (Auto) 12.8 L, Monocytes (%) (Auto) 9.7 H, Eosinophils (%) (Auto) 2.0, Basophils (%) ( Auto) 0.2, Neutrophils # (Auto) 6.0, Lymphocytes # (Auto) 1.0 L, Monocytes # ( Auto) 0.8, Eosinophils # (Auto) 0.2, Basophils # (Auto) 0.0 Microbiology Microbiology 02/23/17 Blood Culture - Preliminary, Resulted No Growth after 48 hours. All Specime... 02/23/17 Blood Culture - Preliminary, Resulted No Growth after 48 hours. All Specime... 02/23/17 Urine Culture - Final, Complete Escherichia Coli GME ATTESTATION GME ATTESTATION My faculty preceptor for this patient encounter was physically present during the encounter and was fully available. All aspects of the patient interview, examination, medical decision making process, and medical care plan development were reviewed and approved by the faculty preceptor. The faculty preceptor is aware and concurs with the plan as stated in the body of this note and will attest to such by his/her cosignature. CRITSIAN WALTERS DO Feb 26, 2017 08:54 Silvestre Myles M.D. Feb 26, 2017 18:23
[2017-02-26] MEDS: MIRALAX *UNIT DOSE* 17GM PACKET PO SCH (08:55)
[2017-02-26] MEDS: BACTRIM 160MG/800MG DS TAB PO SCH ×2 (09:42→21:00)
--- NOTE | 2017-02-26 10:04 | REP ---
Clinical: Recurrent urinary tract infection. Technique: Real time mejía scale ultrasound examination using curved array transducer. Findings: Due to the patient's limitations, bladder was not fully distended nor was the patient able to void for a postvoid evaluation. Bladder currently measured 4.2 x 5.9 x 4.2 cm (70 ml) and demonstrated a right ureteral jet. A left ureteral jet was not identified during examination. A small right anterior bladder diverticulum cannot be excluded and remains relatively similar to prior examination dated 01/25/2010. No significant bladder wall thickening or mass lesion is identified. Impression: Significantly limited examination. 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 No obvious acute abnormality otherwise noted. Signed by Adam Barth MD 02/26/2017 09:56 A
[2017-02-26 14:00] VITALS: BP 150/69
[2017-02-26] MEDS ORDERED: NITROFURANTOIN (MACROBID) 100 MG CAP PO SCH (16:00)
[2017-02-26] MEDS: CARVedilol 12.5 MG TAB PO SCH (21:00)
[2017-02-26] MEDS: ASPIRIN 81 MG ENTERIC TAB PO SCH (21:00)
[2017-02-26] MEDS: ROSUVASTATIN 10 MG TAB (CRESTOR) PO SCH (21:00)
[2017-02-26 22:00] VITALS: BP 161/83
[2017-02-27] MEDS: HEPARIN SOD (PORCINE) 5000 UNITS/ML VIAL SC SCH (05:57)
[2017-02-27 06:00] VITALS: BP 156/79
[2017-02-27 07:09] LABS: BASO % 0.3 % (0.0-1.0); EOS # 0.3 10^3/uL (0.0-0.50); EOS % 4.3 % (0.0-3.0); IMMATURE GRANULOCYTE % 0.3 % (0-0); LYMPH % 16.1 % (24.0-44.0); MEAN CORPUSCULAR HEMOGLOBIN 30.2 pg (27.0-33.0); MEAN CORPUSCULAR HGB CONC 32.6 g/dl (32.0-36.5); MEAN CORPUSCULAR VOLUME 92.8 fl (80.0-96.0); MONO # 0.7 10^3/uL (0.0-0.8); MONO % 11.3 % (0.0-5.0); NEUTROPHILS # 4.2 10^3/uL (1.8-7.7); NEUTROPHILS % 67.7 % (36.0-66.0); PLATELET COUNT, AUTOMATED 261 10^3/uL (150-450); WHITE BLOOD COUNT 6.2 10^3/uL (4.0-10.0)
[2017-02-27 07:24] LABS: ANION GAP 10 MEQ/L (8-16); BLOOD UREA NITROGEN 8 MG/DL (7-18); CALCIUM LEVEL 8.2 MG/DL (8.8-10.2); CARBON DIOXIDE LEVEL 22 MEQ/L (21-32); CHLORIDE LEVEL 113 MEQ/L (98-107); CREATININE FOR GFR 0.77 MG/DL (0.55-1.02); GLOMERULAR FILTRATION RATE > 60.0 (>32); GLUCOSE, FASTING 83 MG/DL (83-110); POTASSIUM SERUM 3.5 MEQ/L (3.5-5.1); SODIUM LEVEL 145 MEQ/L (136-145)
[2017-02-27 08:00] VITALS: BP 159/68
[2017-02-27] MEDS: MIRALAX *UNIT DOSE* 17GM PACKET PO SCH (09:00)
[2017-02-27] MEDS ORDERED: CEFD1CAP8 PO (09:03)
[2017-02-27] MEDS ORDERED: CARV12.5 PO (09:03)
--- NOTE | 2017-02-27 10:09 | DSES ---
DATE OF ADMISSION: 02/23/2017 DATE OF DISCHARGE: PRIMARY CARE PROVIDER: Dr. Silvestre Myles ATTENDING TODAY: Dr. Binh Roberson HISTORY: This is an 86-year-old female patient of Dr. Myles's who presented to [facility] emergency room. She is a resident of [facility] ([facility]) with dementia, mental retardation, who had been complaining of left sided flank pain for a day or two prior to her presentation. Her cognition had been at baseline, according to [facility] caregiver. They also noted a temperature of 100 on the day of presentation, as well as decreased appetite. During her hospitalization, she has remained medically stable. She was admitted to the hospital for pyelonephritis with leukocytosis. She was started on ceftriaxone. Her culture returned Escherichia (E) coli with resistance to ampicillin, as well as indeterminate significance to cefazolin. She did respond favorably to ceftriaxone. She was transitioned to Bactrim, although I had concerns about discharging an 86-year-old patient on oral Bactrim and therefore I will change her to Omnicef, which is the same class cephalosporin of ceftriaxone, which she had already responded favorably to with improvement in her leukocytosis and her physical condition. She will be returning back to [facility] today where I think will continue to see improvement in her overall abilities in comparison with the hospital where she has refused care. Bladder ultrasound without any acute findings, although it was difficult to fully assess due to her bladder not being full. The patient's creatinine clearance was calculated at the day of discharge to be 36.97, therefore her appropriate cefdinir dose is 300 mg by mouth twice a day. DISCHARGE DIAGNOSES: 1. Acute pyelonephritis. 2. Urinary incontinence. 3. Hypertension. 4. Mental retardation. DISCHARGE MEDICATIONS: Include: - Omnicef 300 mg by mouth twice a day for 7 days - carvedilol 12.5 mg by mouth twice a day - aspirin 81 mg daily - FiberCon daily - calcium with vitamin D one tablet twice a day - clobetasol topically as needed for itching - B12 1000 mcg daily - Flonase 50 mcg per actuation daily - multivitamin one tablet daily - mupirocin to wounds as needed - omeprazole 40 mg daily - Ramipril 5 mg twice a day - Risperdal 0.25 mg twice a day - Crestor 20 mg before bed - vitamin D 2000 units daily Discharge plan will be to followup with Dr. Myles in 1 week. Her activity should be as tolerated. Her diet should be soft with no pieces of food greater than 1 cm. She should have nectar thickened liquids.
[2017-02-27] MEDS: VITAMIN D 1,000 INTERNATIONAL UNITS TABLET PO SCH (10:36)
[2017-02-27] MEDS: risperiDONE 0.25 MG TAB PO SCH (10:36)
[2017-02-27 10:37] VITALS: BP 159/68
[2017-02-27] MEDS: CARVedilol 12.5 MG TAB PO SCH (10:37)
[2017-02-27] MEDS: SENOKOT S TAB PO SCH (10:37)
[2017-02-27] MEDS: OCUVITE 1 TAB PO SCH (10:37)
[2017-02-27] MEDS: RAMIPRIL 5 MG CAP PO SCH (10:37)
[2017-02-27] MEDS: BACTRIM 160MG/800MG DS TAB PO SCH (10:38)
[2017-02-27] MEDS: CYANOCOBALAMIN 500 MCG TAB PO SCH (10:38)
[2017-02-27] MEDS: OMEPRAZOLE 20 MG CAP PO SCH (10:38)
[2017-02-27] MEDS: FLUTICASONE PROP 0.05% NASAL SPRAY 16 GM (FLONASE) SCH (10:39)
== END 2017-02-27 10:55 | disposition home or self-care (01) | DRG 690 ==
LOC: M ED 13:17 → M ED INP 18:02 → M MS5PR 19:15
PROVIDERS: ADMIT Hospitalist; ATTEND Family Medicine
DX: N10 Acute pyelonephritis (principal); I50.32 Chronic diastolic (congestive) heart failure; D68.2 Hereditary deficiency of other clotting factors; I13.0 Hypertensive heart and chronic kidney disease with heart failure and stage 1 through stage 4 chronic kidney disease, or unspecified chronic kidney disease; F79 Unspecified intellectual disabilities; F03.90 Unspecified dementia, unspecified severity, without behavioral disturbance, psychotic disturbance, mood disturbance, and anxiety; R32 Unspecified urinary incontinence; B96.29 Other Escherichia coli [E. coli] as the cause of diseases classified elsewhere; Z79.82 Long term (current) use of aspirin; Z79.899 Other long term (current) drug therapy; M19.90 Unspecified osteoarthritis, unspecified site; H35.30 Unspecified macular degeneration; K21.9 Gastro-esophageal reflux disease without esophagitis; Z86.711 Personal history of pulmonary embolism; Z86.718 Personal history of other venous thrombosis and embolism; E78.5 Hyperlipidemia, unspecified; R73.01 Impaired fasting glucose; K59.00 Constipation, unspecified; D33.3 Benign neoplasm of cranial nerves

== ENCOUNTER → 2017-03-02 | Outpatient (REF) | payer MEDICARE, MEDICAID ==
[~2017-03-02] MED LIST changes: +ALTA1CAP3 PO; +ASPI81TA85 PO; +CALCTAB6 PO; +CARV12.5 PO; +CEFD1CAP8 PO; +CLOB05OI TOP; +FLON1SPR; +OCUVTAB PO; +OMEP10CASR PO; +OMEP20CA3 PO; +SALI0.6523; +TYLE650T35 PO
== END ==
LOC: M SFHCPLAZ 17:34
PROVIDERS: ATTEND Family Medicine
DX: R19.7 Diarrhea, unspecified (principal)

== ENCOUNTER → 2017-03-03 | Outpatient (REF) | payer MEDICARE, MEDICAID ==
[~2017-03-03] MED LIST changes: +AMLO5TAB2 PO; +CALC600T31 PO
[2017-03-03 13:55] LABS: BASO % 0.3 % (0.0-1.0); EOS # 0.3 10^3/uL (0.0-0.50); EOS % 3.3 % (0.0-3.0); IMMATURE GRANULOCYTE % 0.4 % (0-0); LYMPH # 1.3 10^3/uL (1.5-4.5); LYMPH % 16.7 % (24.0-44.0); MEAN CORPUSCULAR HEMOGLOBIN 30.3 pg (27.0-33.0); MEAN CORPUSCULAR HGB CONC 32.1 g/dl (32.0-36.5); MEAN CORPUSCULAR VOLUME 94.3 fl (80.0-96.0); MONO # 0.8 10^3/uL (0.0-0.8); MONO % 10.2 % (0.0-5.0); NEUTROPHILS # 5.2 10^3/uL (1.8-7.7); NEUTROPHILS % 69.1 % (36.0-66.0); PLATELET COUNT, AUTOMATED 410 10^3/uL (150-450); RED CELL DISTRIBUTION WIDTH 13.2 % (11.5-14.5); WHITE BLOOD COUNT 7.5 10^3/uL (4.0-10.0)
[2017-03-03 14:31] LABS: ALBUMIN 2.7 GM/DL (3.2-5.2); ALBUMIN/GLOBULIN RATIO 0.79 (1.00-1.93); ALKALINE PHOSPHATASE 107 U/L (45-117); ALT/SGPT 28 U/L (12-78); ANION GAP 6 MEQ/L (8-16); AST/SGOT 22 U/L (7-37); BILIRUBIN,TOTAL 0.2 MG/DL (0.2-1.0); BLOOD UREA NITROGEN 12 MG/DL (7-18); CALCIUM LEVEL 8.7 MG/DL (8.8-10.2); CARBON DIOXIDE LEVEL 28 MEQ/L (21-32); CHLORIDE LEVEL 109 MEQ/L (98-107); CHOLESTEROL LEVEL 126 MG/DL (<200); CREATININE FOR GFR 0.63 MG/DL (0.55-1.02); GLOMERULAR FILTRATION RATE > 60.0 (>32); GLUCOSE, FASTING 89 MG/DL (83-110); POTASSIUM SERUM 4.7 MEQ/L (3.5-5.1); SODIUM LEVEL 143 MEQ/L (136-145); TOTAL PROTEIN 6.1 GM/DL (6.4-8.2); TRIGLYCERIDES LEVEL 202 MG/DL (<150)
== END ==
LOC: M SFHCPLAZ 13:00
PROVIDERS: ATTEND Family Medicine
DX: R19.7 Diarrhea, unspecified (principal); E78.5 Hyperlipidemia, unspecified
CPT/HCPCS: 36415; 80053; 80061; 83605; 85025; G0463

== ENCOUNTER → 2017-03-05 | Outpatient (CLI) | payer MEDICARE, MEDICAID ==
[~2017-03-05] MED LIST changes: -AMLO5TAB2 PO; -CALC600T31 PO
--- NOTE | 2017-03-05 22:16 | REP ---
Clinical: Pain and swelling. Technique: AP view of the pelvis with neutral and frog lateral views of the right and left hip. Findings: Advanced, symmetric bilateral degenerative changes appreciated. Findings include increased sclerosis to the acetabular roof with marginal spurring and joint space narrowing as well as diffuse enthesopathy and cortical irregularities. No acute fracture dislocation. Impression: Advanced symmetric degenerative changes. Signed by Adam Barth MD 03/05/2017 10:08 P
--- NOTE | 2017-03-05 22:17 | REP ---
Clinical: Pain and swelling. Technique: AP, lateral, bilateral oblique and sunrise views of the right and left knee. Findings: Early advanced tricompartmental osteoarthritic degenerative changes are appreciated bilaterally. No acute fracture dislocation. No effusion. Impression: Early advanced tricompartmental osteoarthritic degenerative changes. Signed by Adam Barth MD 03/05/2017 10:09 P
== END ==
LOC: M RAD 18:45
PROVIDERS: ATTEND Family Medicine
DX: M16.11 Unilateral primary osteoarthritis, right hip (principal); M17.0 Bilateral primary osteoarthritis of knee

== ENCOUNTER 2017-03-24 07:56 | Inpatient (IN) | payer MEDICARE, MEDICAID ==
[2017-03-24 08:42] LABS: BASO % 0.2 % (0.0-1.0); EOS # 0.3 10^3/uL (0.0-0.50); EOS % 2.4 % (0.0-3.0); IMMATURE GRANULOCYTE % 0.3 % (0-0); LYMPH # 1.4 10^3/uL (1.5-4.5); LYMPH % 13.5 % (24.0-44.0); MEAN CORPUSCULAR HGB CONC 32.3 g/dl (32.0-36.5); NEUTROPHILS # 7.5 10^3/uL (1.8-7.7); NEUTROPHILS % 73.6 % (36.0-66.0); PLATELET COUNT, AUTOMATED 127 10^3/uL (150-450); RED CELL DISTRIBUTION WIDTH 13.3 % (11.5-14.5); WHITE BLOOD COUNT 10.2 10^3/uL (4.0-10.0)
[2017-03-24 08:52] LABS: ANION GAP 9 MEQ/L (8-16); BLOOD UREA NITROGEN 16 MG/DL (7-18); CALCIUM LEVEL 8.8 MG/DL (8.8-10.2); CARBON DIOXIDE LEVEL 27 MEQ/L (21-32); CHLORIDE LEVEL 107 MEQ/L (98-107); CREATININE FOR GFR 1.02 MG/DL (0.55-1.02); GLOMERULAR FILTRATION RATE 54.6 (>32); GLUCOSE, FASTING 101 MG/DL (83-110); MAGNESIUM LEVEL 2.2 MG/DL (1.8-2.4); POTASSIUM SERUM 4.4 MEQ/L (3.5-5.1); SODIUM LEVEL 143 MEQ/L (136-145)
[2017-03-24] MEDS ORDERED: ISOVUE-370 76% 100ML VIAL (Q9967) As Ordered (09:35)
[2017-03-24] MEDS: NS 1,000 ML IV (09:47)
[2017-03-24] MEDS: ASPIRIN 81 MG CHEW TABLET PO (09:47)
[2017-03-24] MEDS: APIXABAN 5 MG TAB (ELIQUIS) PO ×2 (12:37→21:13)
[2017-03-24] MEDS ORDERED: SODIUM CHLORIDE NASAL 0.65% SPRAY BTL (OCEAN) (17:00)
[2017-03-24] MEDS: CARVedilol 12.5 MG TAB PO (21:12)
[2017-03-24] MEDS: CYANOCOBALAMIN 500 MCG TAB PO (21:12)
[2017-03-24] MEDS: risperiDONE 0.25 MG TAB PO (21:13)
[2017-03-24] MEDS: RAMIPRIL 5 MG CAP PO (21:13)
[2017-03-24] MEDS: ROSUVASTATIN 10 MG TAB (CRESTOR) PO (21:13)
[2017-03-25 06:01] LABS: MEAN CORPUSCULAR HEMOGLOBIN 29.5 pg (27.0-33.0); MEAN CORPUSCULAR HGB CONC 32.4 g/dl (32.0-36.5); MEAN CORPUSCULAR VOLUME 91.1 fl (80.0-96.0); PLATELET COUNT, AUTOMATED 152 10^3/uL (150-450); RED CELL DISTRIBUTION WIDTH 13.9 % (11.5-14.5); WHITE BLOOD COUNT 10.4 10^3/uL (4.0-10.0)
[2017-03-25 06:28] LABS: ALBUMIN 2.5 GM/DL (3.2-5.2); ALBUMIN/GLOBULIN RATIO 0.66 (1.00-1.93); ALKALINE PHOSPHATASE 88 U/L (45-117); ALT/SGPT 12 U/L (12-78); ANION GAP 9 MEQ/L (8-16); AST/SGOT 17 U/L (7-37); BILIRUBIN,TOTAL 0.5 MG/DL (0.2-1.0); BLOOD UREA NITROGEN 14 MG/DL (7-18); CALCIUM LEVEL 8.6 MG/DL (8.8-10.2); CARBON DIOXIDE LEVEL 25 MEQ/L (21-32); CHLORIDE LEVEL 112 MEQ/L (98-107); CREATININE FOR GFR 1.03 MG/DL (0.55-1.02); GLUCOSE, FASTING 87 MG/DL (83-110); POTASSIUM SERUM 3.8 MEQ/L (3.5-5.1); SODIUM LEVEL 146 MEQ/L (136-145); TOTAL PROTEIN 6.3 GM/DL (6.4-8.2)
[2017-03-25] MEDS: FLUTICASONE PROP 0.05% NASAL SPRAY 16 GM (FLONASE) (08:33)
[2017-03-25] MEDS: CARVedilol 12.5 MG TAB PO ×2 (08:34→22:02)
[2017-03-25] MEDS: risperiDONE 0.25 MG TAB PO ×2 (08:34→22:02)
[2017-03-25] MEDS: RAMIPRIL 5 MG CAP PO ×2 (08:34→22:03)
[2017-03-25] MEDS: APIXABAN 5 MG TAB (ELIQUIS) PO ×2 (08:34→22:03)
[2017-03-25] MEDS: OMEPRAZOLE 20 MG CAP PO (08:34)
[2017-03-25] MEDS: ACETAMINOPHEN TAB 650MG DOSE (2X325MG) PO (18:07)
[2017-03-25] MEDS: CYANOCOBALAMIN 500 MCG TAB PO (22:02)
[2017-03-25] MEDS: ROSUVASTATIN 10 MG TAB (CRESTOR) PO (22:02)
[2017-03-26] MEDS: risperiDONE 0.25 MG TAB PO ×2 (08:07→21:01)
[2017-03-26] MEDS: APIXABAN 5 MG TAB (ELIQUIS) PO ×2 (08:07→21:01)
[2017-03-26] MEDS: FLUTICASONE PROP 0.05% NASAL SPRAY 16 GM (FLONASE) (08:07)
[2017-03-26] MEDS: OMEPRAZOLE 20 MG CAP PO (08:07)
[2017-03-26] MEDS: CARVedilol 12.5 MG TAB PO ×2 (08:07→21:01)
[2017-03-26] MEDS: RAMIPRIL 5 MG CAP PO ×2 (08:07→21:01)
[2017-03-26] MEDS: CYANOCOBALAMIN 500 MCG TAB PO (21:01)
[2017-03-26] MEDS: ROSUVASTATIN 10 MG TAB (CRESTOR) PO (21:01)
[2017-03-27 06:09] LABS: BASO % 0.2 % (0.0-1.0); EOS # 0.1 10^3/uL (0.0-0.50); EOS % 0.9 % (0.0-3.0); IMMATURE GRANULOCYTE # 0.1 10^3/uL (0-0); IMMATURE GRANULOCYTE % 0.4 % (0-0); LYMPH # 1.7 10^3/uL (1.5-4.5); LYMPH % 15.2 % (24.0-44.0); MEAN CORPUSCULAR HEMOGLOBIN 30.1 pg (27.0-33.0); MEAN CORPUSCULAR HGB CONC 32.2 g/dl (32.0-36.5); MEAN CORPUSCULAR VOLUME 93.5 fl (80.0-96.0); MONO # 1.3 10^3/uL (0.0-0.8); MONO % 11.8 % (0.0-5.0); NEUTROPHILS % 71.5 % (36.0-66.0); PLATELET COUNT, AUTOMATED 181 10^3/uL (150-450); RED CELL DISTRIBUTION WIDTH 13.7 % (11.5-14.5); WHITE BLOOD COUNT 11.2 10^3/uL (4.0-10.0)
[2017-03-27] MEDS: CARVedilol 12.5 MG TAB PO ×2 (07:49→20:42)
[2017-03-27] MEDS: risperiDONE 0.25 MG TAB PO ×2 (07:50→20:42)
[2017-03-27] MEDS: APIXABAN 5 MG TAB (ELIQUIS) PO ×2 (07:50→20:42)
[2017-03-27] MEDS: RAMIPRIL 5 MG CAP PO ×2 (07:50→20:42)
[2017-03-27] MEDS: OMEPRAZOLE 20 MG CAP PO (07:50)
[2017-03-27] MEDS: FLUTICASONE PROP 0.05% NASAL SPRAY 16 GM (FLONASE) (07:50)
[2017-03-27] MEDS: CYANOCOBALAMIN 500 MCG TAB PO (20:42)
[2017-03-27] MEDS: ROSUVASTATIN 10 MG TAB (CRESTOR) PO (20:42)
[2017-03-28 06:34] LABS: BASO % 0.4 % (0.0-1.0); EOS # 0.2 10^3/uL (0.0-0.50); EOS % 2.2 % (0.0-3.0); IMMATURE GRANULOCYTE % 0.4 % (0-0); LYMPH # 1.9 10^3/uL (1.5-4.5); LYMPH % 17.9 % (24.0-44.0); MEAN CORPUSCULAR HGB CONC 31.8 g/dl (32.0-36.5); MEAN CORPUSCULAR VOLUME 94.4 fl (80.0-96.0); MONO # 1.2 10^3/uL (0.0-0.8); MONO % 11.9 % (0.0-5.0); NEUTROPHILS % 67.2 % (36.0-66.0); PLATELET COUNT, AUTOMATED 214 10^3/uL (150-450); RED CELL DISTRIBUTION WIDTH 13.6 % (11.5-14.5); WHITE BLOOD COUNT 10.4 10^3/uL (4.0-10.0)
[2017-03-28 06:49] LABS: ALBUMIN 2.2 GM/DL (3.2-5.2); ALBUMIN/GLOBULIN RATIO 0.54 (1.00-1.93); ALKALINE PHOSPHATASE 91 U/L (45-117); ALT/SGPT 28 U/L (12-78); ANION GAP 7 MEQ/L (8-16); AST/SGOT 54 U/L (7-37); BILIRUBIN,TOTAL 0.4 MG/DL (0.2-1.0); BLOOD UREA NITROGEN 17 MG/DL (7-18); CALCIUM LEVEL 8.1 MG/DL (8.8-10.2); CARBON DIOXIDE LEVEL 26 MEQ/L (21-32); CHLORIDE LEVEL 114 MEQ/L (98-107); GLOMERULAR FILTRATION RATE > 60.0 (>32); GLUCOSE, FASTING 101 MG/DL (83-110); SODIUM LEVEL 147 MEQ/L (136-145); TOTAL PROTEIN 6.3 GM/DL (6.4-8.2)
[2017-03-28] MEDS: RAMIPRIL 5 MG CAP PO ×2 (09:12→20:30)
[2017-03-28] MEDS: OMEPRAZOLE 20 MG CAP PO (09:13)
[2017-03-28] MEDS: CARVedilol 12.5 MG TAB PO ×2 (09:13→20:30)
[2017-03-28] MEDS: APIXABAN 5 MG TAB (ELIQUIS) PO ×2 (09:13→20:29)
[2017-03-28] MEDS: FLUTICASONE PROP 0.05% NASAL SPRAY 16 GM (FLONASE) (09:13)
[2017-03-28] MEDS: risperiDONE 0.25 MG TAB PO ×2 (09:13→20:30)
[2017-03-28] MEDS: amLODIPine 5 MG TAB PO (16:35)
[2017-03-28] MEDS: CYANOCOBALAMIN 500 MCG TAB PO (20:29)
[2017-03-28] MEDS: ROSUVASTATIN 10 MG TAB (CRESTOR) PO (20:29)
[2017-03-28] MEDS: ACETAMINOPHEN TAB 650MG DOSE (2X325MG) PO (20:31)
[2017-03-29 06:23] LABS: BASO % 0.5 % (0.0-1.0); EOS # 0.3 10^3/uL (0.0-0.50); EOS % 3.5 % (0.0-3.0); IMMATURE GRANULOCYTE % 0.4 % (0-0); LYMPH # 1.5 10^3/uL (1.5-4.5); LYMPH % 17.6 % (24.0-44.0); MEAN CORPUSCULAR HEMOGLOBIN 30.2 pg (27.0-33.0); MEAN CORPUSCULAR HGB CONC 31.6 g/dl (32.0-36.5); MEAN CORPUSCULAR VOLUME 95.6 fl (80.0-96.0); MONO % 12.2 % (0.0-5.0); NEUTROPHILS # 5.6 10^3/uL (1.8-7.7); NEUTROPHILS % 65.8 % (36.0-66.0); PLATELET COUNT, AUTOMATED 247 10^3/uL (150-450); RED CELL DISTRIBUTION WIDTH 13.5 % (11.5-14.5); WHITE BLOOD COUNT 8.5 10^3/uL (4.0-10.0)
[2017-03-29] MEDS: FLUTICASONE PROP 0.05% NASAL SPRAY 16 GM (FLONASE) (08:56)
[2017-03-29] MEDS: OMEPRAZOLE 20 MG CAP PO (08:56)
[2017-03-29] MEDS: RAMIPRIL 5 MG CAP PO (08:56)
[2017-03-29] MEDS: amLODIPine 5 MG TAB PO (08:56)
[2017-03-29] MEDS: risperiDONE 0.25 MG TAB PO (08:57)
[2017-03-29] MEDS: APIXABAN 5 MG TAB (ELIQUIS) PO (08:57)
[2017-03-29] MEDS: CARVedilol 12.5 MG TAB PO (08:57)
== END 2017-03-29 12:20 | disposition home or self-care (01) | DRG 299 ==
LOC: M ED 07:56 → M ED INP 13:43 → M MSPAV 15:26
DX: I82.431 Acute embolism and thrombosis of right popliteal vein (principal); I26.92 Saddle embolus of pulmonary artery without acute cor pulmonale; E87.0 Hyperosmolality and hypernatremia; D68.51 Activated protein C resistance; K21.9 Gastro-esophageal reflux disease without esophagitis; E78.5 Hyperlipidemia, unspecified; F79 Unspecified intellectual disabilities; D72.829 Elevated white blood cell count, unspecified; Z79.899 Other long term (current) drug therapy; I10 Essential (primary) hypertension; Z66 Do not resuscitate

== ENCOUNTER → 2017-04-06 | Outpatient (REF) | payer MEDICARE, MEDICAID ==
[2017-04-06 18:26] LABS: ALBUMIN 2.9 GM/DL (3.2-5.2); ALBUMIN/GLOBULIN RATIO 0.91 (1.00-1.93); ALKALINE PHOSPHATASE 82 U/L (45-117); ALT/SGPT 23 U/L (12-78); ANION GAP 7 MEQ/L (8-16); AST/SGOT 24 U/L (7-37); BILIRUBIN,TOTAL 0.2 MG/DL (0.2-1.0); BLOOD UREA NITROGEN 17 MG/DL (7-18); CALCIUM LEVEL 8.9 MG/DL (8.8-10.2); CARBON DIOXIDE LEVEL 28 MEQ/L (21-32); CHLORIDE LEVEL 109 MEQ/L (98-107); CREATININE FOR GFR 0.94 MG/DL (0.55-1.02); GLUCOSE, FASTING 82 MG/DL (83-110); POTASSIUM SERUM 4.7 MEQ/L (3.5-5.1); SODIUM LEVEL 144 MEQ/L (136-145); TOTAL PROTEIN 6.1 GM/DL (6.4-8.2)
[2017-04-06 18:37] LABS: BASO % 0.3 % (0.0-1.0); EOS # 0.2 10^3/uL (0.0-0.50); EOS % 2.9 % (0.0-3.0); HEMATOCRIT 44.4 % (36.0-47.0); HEMOGLOBIN 14.1 g/dl (12.0-16.0); IMMATURE GRANULOCYTE % 0.2 % (0-0); LYMPH # 1.4 10^3/uL (1.5-4.5); LYMPH % 23.1 % (24.0-44.0); MEAN CORPUSCULAR HEMOGLOBIN 29.9 pg (27.0-33.0); MEAN CORPUSCULAR HGB CONC 31.8 g/dl (32.0-36.5); MEAN CORPUSCULAR VOLUME 94.1 fl (80.0-96.0); MONO # 0.8 10^3/uL (0.0-0.8); MONO % 12.8 % (0.0-5.0); NEUTROPHILS # 3.7 10^3/uL (1.8-7.7); NEUTROPHILS % 60.7 % (36.0-66.0); PLATELET COUNT, AUTOMATED 379 10^3/uL (150-450); RED BLOOD COUNT 4.72 10^6/uL (4.00-5.40); RED CELL DISTRIBUTION WIDTH 13.5 % (11.5-14.5); WHITE BLOOD COUNT 6.2 10^3/uL (4.0-10.0)
[2017-04-06 18:51] LABS: HEMATOCRIT 44.4 % (36.0-47.0)
[2017-04-06 20:46] LABS: VITAMIN B12 LEVEL > 2000 PG/ML (247-911)
[2017-04-07 11:49] LABS: PRETREATED FOLATE FOR RBCFOL 13.9 NG/ML; RBC FOLATE 657.4 NG/ML (280-791)
[2017-04-10 13:20] LABS: ALBUMIN 3.11 GM/DL (3.29-5.55); ALPHA-1-GLOBULIN % 5.7 % (2.9-4.9); ALPHA-1-GLOBULINS 0.35 GM/DL (0.17-0.41); ALPHA-2-GLOBULINS 1.01 GM/DL (0.42-0.99); ALPHA-2-GLOBULINS % 16.6 % (7.1-11.8); BETA-1-GLOBULINS % 6.1 % (4.7-7.2); BETA-2-GLOBULINS % 4.9 % (3.2-6.5); GAMMA GLOBULIN % 15.7 % (11.1-18.8)
[2017-04-10 13:21] LABS: BETA-1-GLOBULINS 0.37 GM/DL (0.28-0.60); GAMMA GLOBULINS 0.96 GM/DL (0.65-1.58)
== END ==
LOC: M SFHCPLAZ 15:50
DX: D75.89 Other specified diseases of blood and blood-forming organs (principal); N18.3 Chronic kidney disease, stage 3 (moderate)
CPT/HCPCS: 84165

== ENCOUNTER → 2017-04-17 | Outpatient (CLI) | payer MEDICARE, MEDICAID | LOC: M WHC 12:58 | DX: Z12.31 Encounter for screening mammogram for malignant neoplasm of breast (principal) | CPT/HCPCS: 77067 ==

== ENCOUNTER → 2017-04-24 | Outpatient (REF) | payer MEDICARE, MEDICAID | LOC: M SFHCPLAZ 15:20 | DX: I10 Essential (primary) hypertension (principal); I50.9 Heart failure, unspecified; E78.9 Disorder of lipoprotein metabolism, unspecified ==

== ENCOUNTER 2017-05-02 19:26 | Emergency (ER) | payer MEDICARE, MEDICAID ==
[2017-05-02 20:57] LABS: HEMATOCRIT 44.8 % (36.0-47.0); HEMOGLOBIN 14.7 g/dl (12.0-16.0); MEAN CORPUSCULAR HEMOGLOBIN 30.7 pg (27.0-33.0); MEAN CORPUSCULAR HGB CONC 32.8 g/dl (32.0-36.5); MEAN CORPUSCULAR VOLUME 93.5 fl (80.0-96.0); PLATELET COUNT, AUTOMATED 228 10^3/uL (150-450); RED BLOOD COUNT 4.79 10^6/uL (4.00-5.40); RED CELL DISTRIBUTION WIDTH 14.7 % (11.5-14.5); WHITE BLOOD COUNT 10.6 10^3/uL (4.0-10.0)
[2017-05-02 21:11] LABS: INR 1.07
[2017-05-02 21:29] LABS: ANION GAP 8 MEQ/L (8-16); BLOOD UREA NITROGEN 18 MG/DL (7-18); CALCIUM LEVEL 8.5 MG/DL (8.8-10.2); CARBON DIOXIDE LEVEL 26 MEQ/L (21-32); CHLORIDE LEVEL 106 MEQ/L (98-107); CREATININE FOR GFR 0.83 MG/DL (0.55-1.30); GLOMERULAR FILTRATION RATE > 60.0 (>32); GLUCOSE, FASTING 99 MG/DL (70-100); POTASSIUM SERUM 4.4 MEQ/L (3.5-5.1); SODIUM LEVEL 140 MEQ/L (136-145)
== END 2017-05-02 22:49 | disposition home or self-care (01) ==
LOC: M ED 19:26
DX: I82.431 Acute embolism and thrombosis of right popliteal vein (principal); R60.0 Localized edema; I10 Essential (primary) hypertension; Z79.899 Other long term (current) drug therapy; Z79.01 Long term (current) use of anticoagulants; Z86.718 Personal history of other venous thrombosis and embolism
CPT/HCPCS: 93970

== ENCOUNTER → 2017-05-04 | Outpatient (REF) | payer MEDICARE, MEDICAID ==
[2017-05-04 14:31] LABS: APPEARANCE, URINE CLOUDY (CLEAR); BACTERIA, URINE AUTO 1+ (NEGATIVE); BILIRUBIN, URINE AUTO NEGATIVE (NEGATIVE); BLOOD, URINE BLOOD NEGATIVE (NEGATIVE); COLOR, URINE YELLOW (YELLOW); GLUCOSE, URINE (UA) AUTO NEGATIVE (NEGATIVE); KETONE, URINE AUTO NEGATIVE (NEGATIVE); LEUKOCYTE ESTERASE, URINE AUTO 3+ (NEGATIVE); MUCUS, URINE SMALL (NEGATIVE); NITRITE, URINE AUTO POSITIVE (NEGATIVE); PROTEIN, URINE AUTO NEGATIVE (NEGATIVE); RBC, URINE AUTO 1 /HPF (0-3); SQUAMOUS EPITHELIAL CELL UR AU 1 /HPF (0-6); WBC, URINE AUTO 36 /HPF (0-3)
== END ==
LOC: M SFHCPLAZ 12:31
DX: R53.83 Other fatigue (principal)
CPT/HCPCS: 81001

== ENCOUNTER → 2017-05-10 | Outpatient (REF) | payer MEDICARE, MEDICAID ==
[2017-05-10 14:19] LABS: BASO % 0.1 % (0.0-1.0); EOS % 0.2 % (0.0-3.0); HEMOGLOBIN 14.1 g/dl (12.0-16.0); IMMATURE GRANULOCYTE % 0.4 % (0-0); LYMPH # 1.3 10^3/uL (1.5-4.5); MEAN CORPUSCULAR HEMOGLOBIN 29.7 pg (27.0-33.0); MEAN CORPUSCULAR HGB CONC 31.3 g/dl (32.0-36.5); MEAN CORPUSCULAR VOLUME 94.7 fl (80.0-96.0); MONO # 1.1 10^3/uL (0.0-0.8); MONO % 9.9 % (0.0-5.0); NEUTROPHILS # 8.4 10^3/uL (1.8-7.7); NEUTROPHILS % 77.4 % (36.0-66.0); PLATELET COUNT, AUTOMATED 239 10^3/uL (150-450); RED BLOOD COUNT 4.75 10^6/uL (4.00-5.40); RED CELL DISTRIBUTION WIDTH 15.2 % (11.5-14.5); WHITE BLOOD COUNT 10.8 10^3/uL (4.0-10.0)
[2017-05-10 14:35] LABS: ALBUMIN/GLOBULIN RATIO 0.97 (1.00-1.93); ALKALINE PHOSPHATASE 66 U/L (45-117); ALT/SGPT 23 U/L (12-78); ANION GAP 6 MEQ/L (8-16); AST/SGOT 16 U/L (7-37); BILIRUBIN,TOTAL 0.5 MG/DL (0.2-1.0); BLOOD UREA NITROGEN 21 MG/DL (7-18); CALCIUM LEVEL 8.7 MG/DL (8.8-10.2); CARBON DIOXIDE LEVEL 29 MEQ/L (21-32); CHLORIDE LEVEL 105 MEQ/L (98-107); CREATININE FOR GFR 1.01 MG/DL (0.55-1.30); FREE T4 1.24 NG/DL (0.76-1.46); GLOMERULAR FILTRATION RATE 55.1 (>32); GLUCOSE, FASTING 114 MG/DL (70-100); POTASSIUM SERUM 4.3 MEQ/L (3.5-5.1); SODIUM LEVEL 140 MEQ/L (136-145); THYROID STIMULATING HORMONE 0.685 uIU/ML (0.358-3.740); TOTAL PROTEIN 6.1 GM/DL (6.4-8.2)
[2017-05-12 10:19] LABS: H PYLORI SERUM QUANT IgG ABY 0.47 (0.00-0.79)
== END ==
LOC: M SFHCSACK 10:09
DX: D75.89 Other specified diseases of blood and blood-forming organs (principal); R63.4 Abnormal weight loss
CPT/HCPCS: 84443

== ENCOUNTER → 2017-07-06 | Outpatient (REF) | payer MEDICARE, MEDICAID ==
[2017-07-06 11:49] LABS: APPEARANCE, URINE CLOUDY (CLEAR); BACTERIA, URINE AUTO 3+ (NEGATIVE); BILIRUBIN, URINE AUTO NEGATIVE (NEGATIVE); BLOOD, URINE BLOOD NEGATIVE (NEGATIVE); COLOR, URINE YELLOW (YELLOW); GLUCOSE, URINE (UA) AUTO NEGATIVE (NEGATIVE); KETONE, URINE AUTO NEGATIVE (NEGATIVE); LEUKOCYTE ESTERASE, URINE AUTO 3+ (NEGATIVE); NITRITE, URINE AUTO NEGATIVE (NEGATIVE); PROTEIN, URINE AUTO NEGATIVE (NEGATIVE); RBC, URINE AUTO 6 /HPF (0-3); SPECIFIC GRAVITY URINE AUTO 1.014 (1.002-1.035); SQUAMOUS EPITHELIAL CELL UR AU 2 /HPF (0-6); UROBILINOGEN, URINE AUTO 0.2 mg/dL (0.0-2.0); WBC, URINE AUTO 149 /HPF (0-3); YEAST LIKE CELL URINE AUTO SMALL
== END ==
LOC: M SFHCPLAZ 11:36
DX: R53.81 Other malaise (principal)
CPT/HCPCS: 81001

== ENCOUNTER 2017-07-14 17:32 | Emergency (ER) | payer MEDICARE, MEDICAID ==
[2017-07-14 19:46] LABS: BASO % 0.1 % (0.0-1.0); EOS % 0.5 % (0.0-3.0); HEMATOCRIT 44.8 % (36.0-47.0); HEMOGLOBIN 14.9 g/dl (12.0-15.5); IMMATURE GRANULOCYTE % 0.6 % (0-3.0); LYMPH # 1.6 10^3/uL (1.5-4.5); LYMPH % 18.3 % (24.0-44.0); MEAN CORPUSCULAR HEMOGLOBIN 30.8 pg (27.0-33.0); MEAN CORPUSCULAR HGB CONC 33.3 g/dl (32.0-36.5); MEAN CORPUSCULAR VOLUME 92.8 fl (80.0-96.0); MONO # 0.8 10^3/uL (0.0-0.8); MONO % 9.5 % (0.0-5.0); NEUTROPHILS # 6.2 10^3/uL (1.8-7.7); PLATELET COUNT, AUTOMATED 226 10^3/uL (150-450); RED BLOOD COUNT 4.83 10^6/uL (4.00-5.40); RED CELL DISTRIBUTION WIDTH 14.6 % (11.5-14.5); WHITE BLOOD COUNT 8.7 10^3/uL (4.0-10.0)
[2017-07-14 20:08] LABS: ANION GAP 6 MEQ/L (8-16); BLOOD UREA NITROGEN 11 MG/DL (7-18); CALCIUM LEVEL 8.9 MG/DL (8.8-10.2); CARBON DIOXIDE LEVEL 28 MEQ/L (21-32); CHLORIDE LEVEL 108 MEQ/L (98-107); CREATININE FOR GFR 0.71 MG/DL (0.55-1.30); GLOMERULAR FILTRATION RATE > 60.0 (>32); GLUCOSE, FASTING 89 MG/DL (70-100); POTASSIUM SERUM 3.9 MEQ/L (3.5-5.1); SODIUM LEVEL 142 MEQ/L (136-145)
[2017-07-14 20:18] LABS: KETONE, URINE AUTO RFX NEGATIVE (NEGATIVE); LEUKOCYTE ESTERASE UR AUTO RFX 3+ (NEGATIVE); MUCUS, URINE RFX SMALL (NEGATIVE); NITRITE, URINE AUTO RFX POSITIVE (NEGATIVE); RBC, URINE AUTO RFX 33 /HPF (0-3); SPECIFIC GRAVITY UR AUTO RFX 1.005 (1.002-1.035); SQUAM EPITHELIAL CELL UR AURFX 1 /HPF (0-6); WBC, URINE AUTO RFX TNTC /HPF (0-3)
== END 2017-07-14 20:58 | disposition home or self-care (01) ==
LOC: M ED 17:32
DX: N39.0 Urinary tract infection, site not specified (principal); R31.9 Hematuria, unspecified; I10 Essential (primary) hypertension; Z79.899 Other long term (current) drug therapy; Z79.01 Long term (current) use of anticoagulants; Z79.51 Long term (current) use of inhaled steroids
CPT/HCPCS: 80048